=== PATIENT | female | born 1940 | race Caucasian/White ===

== ENCOUNTER → 2017-01-03 08:48 | Outpatient (CLI) | payer MEDICARE, OTHER ==
[2016-11-17 15:05] VITALS: BMI 26.3
[~2017-01-03 08:48] MED LIST: ATIVAN0.5 MG PO; CARAFATE1 G PO; CYCLOBENZAPRINE10 MG PO; EFFEXOR XR75 MG PO; EFFEXOR100 MG PO; HYDROCODONE-APA1 TAB PO; LIDOCAINE 2 %100 ML PO; LIPITOR40 MG PO; MAGNESIUM GLUC500 M1 PO; NYSTATIN ORAL SU5 ML PO; PEPCID20 MG PO; PROTONIX40 MG PO; RESTORIL15 MG PO; ZOFRAN4 MG PO
== END | disposition home or self-care (01) ==
LOC: D.CT 08:48
DX: C34.90 Malignant neoplasm of unspecified part of unspecified bronchus or lung (principal)

== ENCOUNTER → 2017-02-09 08:07 | Outpatient (CLI) | payer MEDICARE, OTHER ==
[2016-11-17 15:05] VITALS: BMI 26.3
== END | disposition home or self-care (01) ==
LOC: D.CT 08:07
DX: C34.82 Malignant neoplasm of overlapping sites of left bronchus and lung (principal)

== ENCOUNTER → 2017-04-11 14:14 | Outpatient (CLI) | payer MEDICARE, OTHER ==
[2016-11-17 15:05] VITALS: BMI 26.3
[~2017-04-11 14:14] MED LIST changes: +LEVAQUIN750 MG PO; +VITAMIN B-121000 MCG PO; +VITAMIN E1000 UNI1 PO
== END | disposition home or self-care (01) ==
LOC: D.CT 14:00
DX: C34.90 Malignant neoplasm of unspecified part of unspecified bronchus or lung (principal)

== ENCOUNTER 2017-04-12 13:44 | Inpatient (IN) | payer MEDICARE, OTHER ==
[~2017-04-12] VITALS: Ht 162.6 cm; Wt 62.1 kg
[~2017-04-12 13:44] MED LIST changes: -LEVAQUIN750 MG PO; -VITAMIN B-121000 MCG PO; -VITAMIN E1000 UNI1 PO
[2017-04-12 15:38] LABS: BASOPHILS 0.2 % (0-2); EOSINOPHILS 0.6 % (0-7); HEMATOCRIT 32.2 % (36.0-48.0); IMMATURE GRANULOCYTES 0.1 % (0-5); LYMPHOCYTES 10.4 % (15-50); MCH 29.5 pg (26.0-34.0); MCHC 31.1 g/dL (31.0-37.0); MONOCYTES 6.8 % (2-11); NEUTROPHILS 81.9 % (40-80); RBC 3.39 10x6/uL (4.00-5.40); RDW 14.6 % (11.5-14.5); WBC 8.1 10x3/uL (4.8-10.8)
[2017-04-12 15:39] LABS: PLATELET COUNT 266 10x3/uL (130-400)
[2017-04-12 16:09] LABS: ALBUMIN 2.2 g/dL (3.4-5.0); ANION GAP 12.1 mmol/L (8-16); BILIRUBIN - TOTAL 0.38 mg/dL (0.2-1.3); CALCIUM 8.9 mg/dL (8.5-10.1); CARBON DIOXIDE 29.9 mmol/L (21.0-32.0); CREATININE - SERUM 0.8 mg/dL (0.6-1.3)
[2017-04-12 23:32] VITALS: BP 121/52; BMI 24.7
[2017-04-12] MEDS ORDERED: VITAMIN E1000 UNI1 PO (23:48)
[2017-04-12] MEDS ORDERED: VITAMIN B-121000 MCG PO (23:48)
[2017-04-12] MEDS ORDERED: LEVAQUIN750 MG PO (23:49)
--- NOTE | 2017-04-13 01:48 | NUR ---
RECIEVED REPORT FROM YANET RN AT 0100, RESUMED CARE OF PT. CHECKED IN ON PT, AWAKE AND ANSWERING QUESTING APPROPRIATELY, DENIES PAIN/NEEDS ATT. RR EVEN AND UNLABORED, NO S&S OF ACUTE DISTRESS ATT. BED LOW AND LOCKED, CALL LIGHT IN REACH. IVF INFUSING AT 50ML/HR PER ORDERS. WILL CONTINUE POC.
--- NOTE | 2017-04-13 03:06 | NUR ---
PT USED BED BOO, 200ML YELLOW URINE. DENIES ANY OTHER NEEDS ATT, WILL CONTINUE POC.
[2017-04-13 04:00] VITALS: BP 108/64
[2017-04-13 05:09] LABS: BASOPHILS 0.2 % (0-2); EOSINOPHILS 0 % (0-7); HEMATOCRIT 28.6 % (36.0-48.0); HEMOGLOBIN 9.3 g/dL (12-16); IMMATURE GRANULOCYTES 0.3 % (0-5); LYMPHOCYTES 5.1 % (15-50); MCH 30.5 pg (26.0-34.0); MCHC 32.5 g/dL (31.0-37.0); MCV 93.8 fL (80.0-100.0); MEAN PLATELET VOLUME 9.8 fL (7.4-10.4); NEUTROPHILS 93.4 % (40-80); PLATELET COUNT 281 10x3/uL (130-400); RBC 3.05 10x6/uL (4.00-5.40); RDW 14.4 % (11.5-14.5)
[2017-04-13 05:17] LABS: WBC 5.9 10x3/uL (4.8-10.8)
[2017-04-13 05:26] LABS: CALCIUM 8.6 mg/dL (8.5-10.1); CARBON DIOXIDE 26.1 mmol/L (21.0-32.0); CREATININE - SERUM 0.8 mg/dL (0.6-1.3); POTASSIUM - SERUM 4.1 mmol/L (3.5-5.1)
--- NOTE | 2017-04-13 07:00 | HP ---
PATIENT: DIANA LEYVA MEDICAL RECORD: [id number] ACCOUNT: [id number] LOCATION:[id number] : 39 ADMISSION DATE: 04/12/17 HISTORY AND PHYSICAL EXAMINATION DATE OF ADMISSION: 04/12/2017 CHIEF COMPLAINT: Shortness of breath. HISTORY OF PRESENT ILLNESS: The patient is a 77-year-old female, who has had a history of being diagnosed with lung CA. She had been being treated in the office for postobstructive pneumonia over the last couple of days. The patient's condition continued to worsen. She became more hypoxic. It was felt the patient should be admitted since she had a CT scan showing worsening of her tumor size, as well as having postobstructive pneumonia. PAST MEDICAL HISTORY: Significant that she has had angioplasty. She has had subclavian angioplasty with stenting times 2. She had an appendectomy, cholecystectomy and tonsillectomy. 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 She has had a history of having hyperlipidemia, depression and peripheral vascular disease. FAMILY HISTORY: Father had leukemia. Mother had COPD. MEDICATIONS: Include Ativan 0.5 q.4 hours p.r.n. anxiety, atorvastatin 40 mg 1 p.o. q. day, Breo Ellipta 200 mcg 1 puff daily, Combivent inhaler 2 puffs q.4 hours p.r.n. shortness of breath, and Flexeril 10 mg p.o. b.i.d. She had been on Levaquin 750 mg once a day for approximately a week, nystatin oral suspension 5 mL 4 times a day, Restoril 15 mg p.o. q.h.s. and Effexor 150 mg once a day. ALLERGIES: KEFLEX, WELL ALLERGIC TO THE EGGS. SOCIAL HISTORY: The patient has been a 1 pack per day smoker. She is retired from nursing and fpc industry. She is . She had smoked most of her adult life. REVIEW OF SYSTEMS: CONSTITUTIONAL: She denies any headaches, seizures, or syncope. She denies change in visual or auditory acuity. PULMONARY: She has an increasing shortness of breath with minimal sputum production. CARDIOVASCULAR: She denies any chest pain, palpitation, PND, or orthopnea. GASTROINTESTINAL: No chronic nausea, vomiting, melena or hematochezia. GENITOURINARY: No urgency, frequency, or dysuria. PHYSICAL EXAMINATION: GENERAL: VITAL SIGNS: In the Emergency Room, this patient's temperature was 97.7, her respirations were 16. She is on 4 liters of O2 with a sat of 100. Her blood pressure was 131/59. HEENT: Her head is normocephalic. No lesions. Ears: TMs clear. Eyes: Pupils are equal, round and reactive to light. Extraocular movements are intact. Nasal cavity, oral cavity and oropharynx clear. NECK: Supple. There is no adenopathy. HEART: Has a regular rate. HISTORY AND PHYSICAL [id number] DIANA LEYVA LUNGS: She has rales, rhonchi, decreased breath sounds in the left lower lung. ABDOMEN: Soft. Bowel sounds are positive. EXTREMITIES: Lower extremities have no edema. LABORATORY DATA: She had a white count of 8.1, hemoglobin 10, hematocrit 32.2 and platelets are 266. She has a sodium of 140, potassium 4, chloride 102, CO2 is 29.9, BUN is 14 and creatinine is 0.9. DIAGNOSTIC DATA: The patient had a chest x-ray. The chest x-ray showed no interval change of airspace disease involving the lingula or left lower lung associated with pleural effusion. The patient had had a CT scan yesterday. The CT did reveal increased size of the tumor as well as a postobstructive changes. ASSESSMENT: Postobstructive pneumonia, history of lung cancer, hypertension, hyperlipidemia, history of depression, and stage III lung cancer. PLAN: The patient will be admitted. Oncology as well as pulmonology consultation will be obtained. TRANSINT:[id number] Voice Confirmation ID: [id number] DOCUMENT ID: [id number] LAILA BUSBY MD at 0700 CC: [id number] DICTATION DATE: 04/12/171752 ANALYTICAL DATA MINER: 04/13/17 0023 ADM IN [facility] [id number] [place] [address]
--- NOTE | 2017-04-13 07:35 | NUR ---
PT ASSESSMENT COMPLETE ON WALKING ROUNDS AWAKE AND ALERT ORINETD X 3 LUNGS WITH NOTED RHONCHI IN ALL FEILDS PTR SHORT OF BREATHIN PROCESS OF UPDRAFT TX AT THIS TIME. BSA X 4 QUADS ALL ADLS PER STAFF ASSIST. SIDE RAILS UP X 2 CALL LIGHT IN REACH.
[2017-04-13 08:31] VITALS: BP 107/50
[2017-04-13 12:45] VITALS: BP 114/47
--- NOTE | 2017-04-13 13:07 | NUR ---
Patient Name: DIANA LEYVA Admission Status: ER Accout number: [id number] Admission Date: 04-12-2017 : 1940 Admission Diagnosis:PNEUMONIA, UNSPECIFIED ORGANISM Attending: MARIA LUISA Current LOS: 1 Anticipated DC Date: 04-17-2017 Planned Disposition: Home Primary Insurance: MEDICARE A & B Discharge Planning Comments: CM MET WITH PATIENT REGARDING D/C NEEDS AND PLANS. PATIENT STATED SHE LIVES WITH HER SPOUSE (MAURICIO) AND HE WILL DRIVE HER HOME AT DISCHARGE. PATIENTS HOME IS SAFE AND HAS 1 STEP TO ENTER HOME AND NO STAIRS INSIDE. PATIENT STATED SHE IS INDEPENDENT WITH HER CARE AND HAS A WALKER, SHOWER CHAIR, CANE, BS COMMODE, O2 (2L), NEBULIZER, AND PORT O2. OXYGEN IS SUPPLIED BY [facility]. PATIENTS PCP IS DR. BUSBY AND [facility] IS HER PHARMACY. PATIENT WANTS TO WAIT AND SEE IF HOME HEALTH IS NEEDED BEFORE CHOOSING ONE. CM WILL CONTINUE TO FOLLOW PATIENT WITH D/C NEEDS AND PLANS. PCP [facility]- [phone] MAURICIO (SPOUSE) [phone] Dulser: Michelle Lipscomb Is the patient Alert and Oriented? Yes 0 * How many steps to enter\exit or inside your home? 1 0 * PCP DR. BUSBY 0 * Pharmacy [facility] 0 * Preadmission Environment Home with Family 0 * ADLs Independent 0 * Equipment Bedside Commode Cane Nebulizer Oxygen Shower Chair Walker 0 * Other Equipment PORTABLE O2 0 * List name and contact numbers for known caregivers / representatives who currently or will assist patient after discharge: MAURICIO (SPOUSE) [phone] 0 * Community resources currently utilized None 0 * Additional services required to return to the preadmission environment? Yes 0 * Can the patient safely return to the preadmission environment? Yes 0 * Has this patient been hospitalized within the prior 30 days at any hospital? No 0 Grand Total: 0
--- NOTE | 2017-04-13 14:00 | NUR ---
ARANDA CATHETER INSERTED PER ORDER VIA STERILE TECHNIQUE WITH IMMEDIATE RETURN OF CLEAR YELLOW URINE.
[2017-04-13 14:31] VITALS: Ht 162.6 cm; Wt 62.1 kg
--- NOTE | 2017-04-13 16:36 | NUR ---
NO ACUTE DISTRESS NOTED VOICES ALL NEEDS WELL CALL LIGHT IN REACH SIDE RAILS UP X 2
[2017-04-13 16:37] VITALS: BP 113/48
--- NOTE | 2017-04-13 17:00 | NUR ---
PATIENT IS AWAKE, ALERT AND ORIENTED X'S 4. RESPIRATIONS ARE EVEN AND UNLABORED ON 2L/MIN OF OXYGEN VIA NASAL CANNULA. NO SIGNS OF DISTRESS NOTED. BED IN LOWEST POSITION, CALL LIGHT IN REACH. BED RAILS UP X'S 2.
--- NOTE | 2017-04-13 19:54 | NUR ---
NO ACUTE DISTRESS NOTED INITAL ASSESSMENT COMPLETE AWAKE AND ALERT ORIENTED X 3 LUNGS WITH NOTED RHONCHI IN ALL FEILDS. PT SHORT OF BREATH WITH ANY EXERTION. ARANDA PATENT TO CLEAR YELLOW URINE TO GRAVITY FLOW
[2017-04-13 20:00] VITALS: BP 116/63
--- NOTE | 2017-04-13 22:10 | NUR ---
PT REC'D FROM MONIKA FOWLER. RESTING IN BED WITH EYES CLOSED. NO SIGNS OF DISTRESS. RESP EVEN AND UNLABORED. BED LOW, CALL LIGHT IN REACH, DENIES NEEDS. CPOC.
--- NOTE | 2017-04-14 03:33 | NUR ---
PT IS SITTING UP IN THE BED WITH RESP TX FINISHING UP. SHE THEN DID HER IS AND FLUTTER VALVE. THERE IS O2 AT 2 LIGERS AND NO DISTRESS NOTED. SHE IS A LITTLE SHAKEY BUT THIS DOSENT APPEAR TO BE A NEW THING. THE BED IS LOW, RAISL UP X'S 2 WITH THE CALL LIGHT AT HAND.
[2017-04-14 04:00] VITALS: BP 116/53
[2017-04-14 04:33] LABS: BASOPHILS 0 % (0-2); EOSINOPHILS 0 % (0-7); HEMATOCRIT 27.6 % (36.0-48.0); HEMOGLOBIN 8.9 g/dL (12-16); IMMATURE GRANULOCYTES 0.2 % (0-5); LYMPHOCYTES 1.7 % (15-50); MCH 29.9 pg (26.0-34.0); MCHC 32.2 g/dL (31.0-37.0); MCV 92.6 fL (80.0-100.0); MONOCYTES 2.5 % (2-11); NEUTROPHILS 95.6 % (40-80); PLATELET COUNT 318 10x3/uL (130-400); RBC 2.98 10x6/uL (4.00-5.40); RDW 14.5 % (11.5-14.5); WBC 14.8 10x3/uL (4.8-10.8)
[2017-04-14 04:48] LABS: ANION GAP 14.8 mmol/L (8-16); CALCIUM 8.9 mg/dL (8.5-10.1); CARBON DIOXIDE 25.6 mmol/L (21.0-32.0); CREATININE - SERUM 0.8 mg/dL (0.6-1.3)
[2017-04-14 04:50] LABS: POTASSIUM - SERUM 3.4 mmol/L (3.5-5.1)
--- NOTE | 2017-04-14 04:55 | NUR ---
ALERTED BY KRISHNA JAMISON TECH, WITH CRITICAL LAB RESULTS. PT OF 49.5 AND INR OF 5.3.
--- NOTE | 2017-04-14 06:22 | NUR ---
CONSENTS SIGNED AT THIS TIME. NO QUESTIONS OR CONCERNS VOICED BY PT. BED LOW, CALL LIGHT IN REACH, DENIES NEEDS. CPOC.
--- NOTE | 2017-04-14 07:40 | NUR ---
PT AWAKE AND ALERT ORIENTED X 3 LUNGS WITH NOTED CRACKLES BILATERAL UPPER LOBES. BSA X 4 QUADS. NPO SINCE [place] FOR THORACENTESIS TODAY PT VERY ANXIOUS NEW ORDER PER DR CHARLTON FOR 1 MG PO ATIVAN GIVEN PER ORDER.
[2017-04-14 07:58] LABS: APTT 38.7 SECONDS (22.8-39.4); INR 1.18 (0.85-1.17); PROTIME 14.9 SECONDS (11.6-15.0)
[2017-04-14 08:39] VITALS: BP 91/45
--- NOTE | 2017-04-14 08:44 | NUR ---
PT IN CT AT THIS TIME FOR THORACENTESIS.
--- NOTE | 2017-04-14 10:30 | NUR ---
RIGHT PORT ACCESSED PER VASCULAR ACCESS NURSE 20 GA 1 IN KOTHARI INSERTED WITH POSITIVE BLOOD RETURN NOTED STERILE TECHNIQUE USED FOR INSERTION AND DRESSING
--- NOTE | 2017-04-14 10:34 | NUR ---
IV ACCESS-20 GAUGE PER INCH INSERTED IN RIGHT CHEST WALL AFTER STERILE PREP PER HOSPITAL PROTOCOL. SITE DRESSED WITH BIOPATCH, TEGADERM DRESSING. NANCY WEST RN
--- NOTE | 2017-04-14 10:36 | NUR ---
VASCULAR NURSE NANCY IN ROOM.PT WITHOUT DISTRESS.CALL LIGHT IN REACH
[2017-04-14 12:18] LABS: PROTEIN - BODY FLUID 2.9 G/DL
[2017-04-14 12:36] LABS: LYMPH - BF 24 %; MACROPHAGES BF 46 %; MESOTHELIALS BF 15 %; NEUT - BF 15 %
[2017-04-14 13:10] VITALS: BP 107/87
[2017-04-14 16:37] VITALS: BP 110/52
--- NOTE | 2017-04-14 18:40 | NUR ---
PT REQUESTED AND RECIEVED LORAZEPAM FOR ANXIETY HAD THORACENTESIS TODAY WITH REMOVAL OF 700 ML OF FLUID .
[2017-04-14 20:00] VITALS: BP 109/51
--- NOTE | 2017-04-14 21:49 | NUR ---
PATIENT SITTING UP IN BED. ALERT AND ORIENTED. NO SIGNS OF DISTRESS NOTED. DENIES ANY NEEDS OR PAIN AT THIS TIME. SCHEDULED MEDS GIVEN. SHIFT ASSESSMENT COMPLETED. BED LOW. CALL LIGHT IN REACH
[2017-04-15 04:00] VITALS: BP 108/53
[2017-04-15 04:18] LABS: BASOPHILS 0.1 % (0-2); EOSINOPHILS 0.1 % (0-7); HEMOGLOBIN 9.5 g/dL (12-16); IMMATURE GRANULOCYTES 0.2 % (0-5); LYMPHOCYTES 2.7 % (15-50); MCH 29.8 pg (26.0-34.0); MCHC 31.7 g/dL (31.0-37.0); MEAN PLATELET VOLUME 9.9 fL (7.4-10.4); MONOCYTES 4.6 % (2-11); NEUTROPHILS 92.3 % (40-80); PLATELET COUNT 299 10x3/uL (130-400); RBC 3.19 10x6/uL (4.00-5.40); RDW 14.8 % (11.5-14.5); WBC 15.7 10x3/uL (4.8-10.8)
[2017-04-15 04:28] LABS: ANION GAP 12.3 mmol/L (8-16); CALCIUM 8.9 mg/dL (8.5-10.1); CARBON DIOXIDE 25.4 mmol/L (21.0-32.0); CREATININE - SERUM 0.9 mg/dL (0.6-1.3); MAGNESIUM - SERUM 2.1 mg/dL (1.8-2.4); PHOSPHOROUS 2.5 mg/dL (2.5-4.9); POTASSIUM - SERUM 3.7 mmol/L (3.5-5.1)
--- NOTE | 2017-04-15 07:45 | NUR ---
PT AWAKE AND ALERT ORIENTED X 3 LUNGS WITH RHONCHI NOTED TO ALL FEILDS. HRR ON O2 AT 3LPM. BSA X 4 QUADS NON TENDER. ARANDA PATENT TO CLEAR YELLOW URINE.
[2017-04-15 08:20] VITALS: BP 112/59
[2017-04-15 11:53] VITALS: BP 123/56
--- NOTE | 2017-04-15 12:42 | NUR ---
PT RESTING QUIETLY WITH EYES CLOSED NO DISTRESS NOTED RESPS LABORED EVEN IN SLEEP RHONCHI NOTED TO ALL FEILDS
--- NOTE | 2017-04-15 14:29 | NUR ---
AWAKE WITH FAMILY IN THE ROOM AT THIS TIME. RESPIRATIONS EVEN AND NON LABORED. CALL LIGHT IN REACH, WILL CONTINUE WITH PLAN OF CARE.
[2017-04-15 15:56] VITALS: BP 96/50
[2017-04-15 18:07] LABS: ACID FAST SMEAR Negative (()); AFB SPECIMEN PROCESSING Concentration (())
--- NOTE | 2017-04-15 19:20 | NUR ---
REPORT RECEIVED AND CARE ASSUMED. ASSESSMENT COMPLETED, SEE FLOW SHEET FOR FINDINGS. LYING IN BED VISITING WITH . ASSISTED WITH CHANGING TO HER GOWN. AWAKE AND ALERT, ORIENTED X 3. DENIES ANY NEEDS AT THIS TIME. CALL LIGHT IN EASY REACH. WILL CONTINUE TO MONITOR.
[2017-04-15 20:00] VITALS: BP 129/60
--- NOTE | 2017-04-15 21:32 | NUR ---
ATIVAN 1 MG PO GIVEN PER REQUEST FOR ANXIETY.
[2017-04-16] VITALS: BP 121/52
[2017-04-16 04:00] VITALS: BP 109/46
[2017-04-16 04:50] LABS: BASOPHILS 0 % (0-2); EOSINOPHILS 0 % (0-7); HEMATOCRIT 28.2 % (36.0-48.0); IMMATURE GRANULOCYTES 0.3 % (0-5); LYMPHOCYTES 1.8 % (15-50); MCH 29.7 pg (26.0-34.0); MCHC 31.9 g/dL (31.0-37.0); MCV 93.1 fL (80.0-100.0); MEAN PLATELET VOLUME 9.8 fL (7.4-10.4); MONOCYTES 3.4 % (2-11); NEUTROPHILS 94.5 % (40-80); PLATELET COUNT 275 10x3/uL (130-400); RBC 3.03 10x6/uL (4.00-5.40); RDW 14.8 % (11.5-14.5); WBC 13.2 10x3/uL (4.8-10.8)
[2017-04-16 05:03] LABS: ANION GAP 9.7 mmol/L (8-16); CALCIUM 8.8 mg/dL (8.5-10.1); CARBON DIOXIDE 27.2 mmol/L (21.0-32.0); CREATININE - SERUM 0.9 mg/dL (0.6-1.3); MAGNESIUM - SERUM 2.2 mg/dL (1.8-2.4); PHOSPHOROUS 2.2 mg/dL (2.5-4.9); POTASSIUM - SERUM 3.9 mmol/L (3.5-5.1)
--- NOTE | 2017-04-16 06:19 | NUR ---
ELECTROLYTE PROTOCOL DONE: PHOSPHORUS=2.2 LOW NEUTA PHOS PACKET GIVEN IN WATER
[2017-04-16 08:23] VITALS: BP 109/47
[2017-04-16 12:42] VITALS: BP 122/78
[2017-04-16 17:04] VITALS: BP 128/65
[2017-04-16 19:00] VITALS: BP 108/55
--- NOTE | 2017-04-16 21:15 | NUR ---
PATIENT RESTING BED. ALERT AND ORIENTED. NO SIGNS OF DISTRESS NOTED. SCHEDULED MEDS GIVEN. SHIFT ASSESSMENT COMPLETED. DENIES ANY NEEDS AT THIS TIME. BED LOW CALL LIGHT IN REACH
[2017-04-17 04:00] VITALS: BP 101/32
[2017-04-17 04:36] LABS: BASOPHILS 0 % (0-2); EOSINOPHILS 0 % (0-7); HEMATOCRIT 28.1 % (36.0-48.0); HEMOGLOBIN 8.9 g/dL (12-16); IMMATURE GRANULOCYTES 0.3 % (0-5); LYMPHOCYTES 2.2 % (15-50); MCH 29.6 pg (26.0-34.0); MCHC 31.7 g/dL (31.0-37.0); MCV 93.4 fL (80.0-100.0); MEAN PLATELET VOLUME 10.2 fL (7.4-10.4); MONOCYTES 2.4 % (2-11); NEUTROPHILS 95.1 % (40-80); PLATELET COUNT 292 10x3/uL (130-400); RBC 3.01 10x6/uL (4.00-5.40); RDW 14.8 % (11.5-14.5); WBC 11.6 10x3/uL (4.8-10.8)
--- NOTE | 2017-04-17 04:50 | NUR ---
PATIENT RESTING WITH EYES CLOSED. NO VISIBLE SIGNS OF DISTRESS. BED IN LOWEST POSITION AND CALL LIGHT WITHIN REACH.
[2017-04-17 05:04] LABS: ANION GAP 11.1 mmol/L (8-16); CALCIUM 8.8 mg/dL (8.5-10.1); CARBON DIOXIDE 28.8 mmol/L (21.0-32.0); CREATININE - SERUM 0.9 mg/dL (0.6-1.3); MAGNESIUM - SERUM 2.3 mg/dL (1.8-2.4); POTASSIUM - SERUM 3.9 mmol/L (3.5-5.1)
[2017-04-17 05:05] LABS: PHOSPHOROUS 2.9 mg/dL (2.5-4.9)
--- NOTE | 2017-04-17 07:30 | NUR ---
PATIENT IS SITTING UP IN THE BED. PATIENT IS AWAKE, ALERT, AND ORIENTED X4. AT PATIENT'S BEDSIDE. PATIENT IS AWAKE, ALERT, AND ORIENTED X4. PATIENT DENIES ANY NEEDS AT PRESENT TIME. PATIENT IS CURRENTLY RECEIVING A BREATHING TREATMENT PER RT. CALL LIGHT IN PATIENT'S REACH. WILL MONITOR PATIENT.
[2017-04-17 08:24] VITALS: BP 110/43
--- NOTE | 2017-04-17 08:30 | NUR ---
PATIENT RESTING IN BED. PATIENT IS AWAKE, ALERT, AND ORIENTED X4. AT HER BEDSIDE. NO COMPLAINTS OF PAIN AT PRESENT TIME. ASSESSMENT COMPLETED. SEE FLOWSHEET FOR ANY DETAILS. SCHEDULED MORNING MEDICATIONS GIVEN TO PATIENT. PATIENT TOLERATED WELL. RIGHT PORT PATENT WITH DRESSING C/D/I. ARANDA CATHETER PATENT AND DRAINING CLEAR YELLOW URINE. PATIENT DENIES ANY NEEDS AT PRESENT TIME. CALL LIGHT IN PATIENT'S REACH. WILL MONITOR PATIENT.
[2017-04-17 11:10] LABS: FUNGUS STAIN Final report (())
[2017-04-17 11:20] VITALS: BP 117/61
[2017-04-17 16:12] VITALS: BP 119/63
--- NOTE | 2017-04-17 18:11 | NUR ---
PATIENT RESTING IN THE BED. SCHEDULED MEDICATION GIVEN TO PATIENT. PATIENT WATCHING T.V. AND DENIES ANY NEEDS AT PRESENT TIME. CALL LIGHT IN PATIENT'S REACH. WILL MONITOR.
[2017-04-17 19:00] VITALS: BP 130/55
--- NOTE | 2017-04-17 20:10 | NUR ---
PATIENT SITTING UP IN BED. ALERT AND ORIENTED. NO SIGNS OF DISTRESS NOTED. SCHEDULED MEDS GIVEN. SHIFT ASSESSMENT COMPLETED. DENIES ANY NEEDS AT THIS TIME. BED LOW. CALL LIGHT IN REACH
[2017-04-18] VITALS: BP 113/53
[2017-04-18 04:00] VITALS: BP 130/54
[2017-04-18 05:50] LABS: BASOPHILS 0 % (0-2); EOSINOPHILS 0 % (0-7); HEMOGLOBIN 9.5 g/dL (12-16); IMMATURE GRANULOCYTES 0.4 % (0-5); LYMPHOCYTES 2.6 % (15-50); MCH 29.3 pg (26.0-34.0); MCHC 31.7 g/dL (31.0-37.0); MCV 92.6 fL (80.0-100.0); MEAN PLATELET VOLUME 10.1 fL (7.4-10.4); MONOCYTES 4.6 % (2-11); NEUTROPHILS 92.4 % (40-80); PLATELET COUNT 292 10x3/uL (130-400); RBC 3.24 10x6/uL (4.00-5.40); RDW 14.9 % (11.5-14.5)
[2017-04-18 06:08] LABS: CALCIUM 8.5 mg/dL (8.5-10.1); CARBON DIOXIDE 31.2 mmol/L (21.0-32.0); CREATININE - SERUM 0.8 mg/dL (0.6-1.3)
[2017-04-18 06:09] LABS: POTASSIUM - SERUM 3.2 mmol/L (3.5-5.1)
[2017-04-18 08:16] VITALS: BP 121/82
--- NOTE | 2017-04-18 08:33 | NUR ---
PT ASSESSMENT COMPLETE AWAKE AND ALERT ORIENTED X 3 LUNGS NOTED TO HAVE RHONCHI TO BILATERAL LUNGS DO SOUND BETTER THIS ASSESSMENT THAN PREIVOUS ASSESSMENT SEVERAL DAYS AGO. BSA X 4 QUADS ARANDA PATENT TO CLEAR YELLOW URINE.
[2017-04-18 11:48] VITALS: BP 124/69
--- NOTE | 2017-04-18 13:38 | EC ---
PATIENT:DIANA LEYVA DATE OF SERVICE: 04/12/17 SEX: F MEDICAL RECORD: [id number] DATE OF : 39 LOCATION:[facility] AGE OF PATIENT: 77 ADMISSION DATE: 04/12/17 REFERRING PHYSICIAN: INTERPRETING PHYSICIAN: KAYE CHAMORRO MD ECHOCARDIOGRAM REPORT ECHO CHARGES 4 ECHO COMPLETE CLINICAL DIAGNOSIS: CHF ECHOCARDIOGRAPHIC MEASUREMENTS (adult normal given) AC root (d.<3.7cm) 3.5 LV Septum d (<1.2 cm> 0.8 Valve Excursion 1.7 LV Septum (systole) 1.7 Left Atria (s.<4.0cm> 3.3 LVPW d(<1.2cm) 1.1 RV (d.<2.3cm) 2.5 LVPW (sytole) 1.9 LV diastole(<5.6CM) 4.6 MV E-F(>70mm/sec) LV systole 2.1 LVOT Diameter 1.8 MV exc.(>10mm) Est.ejection fraction (50-75%) Pericardial Effusion N DOPPLER: LVIT A 166 E 124 LA RVSP 48.0 LVOT 121 AOP1/2T Asc. Ao 177 RVOT 95.0 RA PA 119 AV Gradient Peak 13.0 AV Mean 5.5 AV Area 1.9 MV Gradient Peak 10.4 MV Mean 4.4 MV Area COMMENTS: [employer]: Franky CARRENOOE Hospital Nurse:Ashu Ordoñez TAPE# PACS DATE OF SERVICE: 04/16/2017 Adequate 2D echo, color flow, spectral Doppler and M-Mode. No LVH. LV internal dimensions are normal. Wall motion is normal. EF is greater than 55%. Aortic valve is tricuspid. No stenosis by Doppler interrogation. The left atrium is normal at 3.3 cm. Mitral valve shows no prolapse. Trace MR. Right-sided chamber is grossly normal. Trace TR. TRANSINT:[id number] Voice Confirmation ID: [id number] DOCUMENT ID: [id number] ECHOCARDIOGRAM REPORT [id number] DIANA LEYVA KAYE BRUNO MD at 1338 CC: [id number] DICTATION DATE: 04/16/17 0929 STUDIO HAND: 04/16/17 1222 ADM IN [facility] [address] [place] [address]
[2017-04-18 15:20] VITALS: BP 133/68
--- NOTE | 2017-04-18 18:54 | NUR ---
PATIENT IS AWAKE, ALERT AND ORIENTED X'S 4. RESPIRATIONS ARE MILDLY LABORED. PATIENT DENIES NEEDS. BED RAILS X'S 4. BED IN LOWEST POSITION.
[2017-04-18 19:00] VITALS: BP 126/56
--- NOTE | 2017-04-18 21:41 | NUR ---
AWAKE,ALERT,NO COMPLAINTS VOICED. IV INFUSING TO RIGHT PORT WIHTOUT REDNESS OR EDEMA NOTED. BILATERAL LUNG SOUNDS WIHT CRACKLES NOTED WIHT EXPIRATORY WHEEZING. CL IN REACH
[2017-04-19] VITALS: BP 139/73
[2017-04-19 04:00] VITALS: BP 131/71
--- NOTE | 2017-04-19 04:16 | NUR ---
EYES CLOSED RESPIRATIONS WITH EASE AND UNLABORED. SR UP X2 CALL LIGHT WITHIN REACH.
[2017-04-19 05:08] LABS: BASOPHILS 0.1 % (0-2); EOSINOPHILS 0 % (0-7); HEMATOCRIT 31.8 % (36.0-48.0); HEMOGLOBIN 10.3 g/dL (12-16); IMMATURE GRANULOCYTES 0.6 % (0-5); LYMPHOCYTES 2.6 % (15-50); MCHC 32.4 g/dL (31.0-37.0); MCV 92.7 fL (80.0-100.0); MEAN PLATELET VOLUME 10.5 fL (7.4-10.4); MONOCYTES 3.3 % (2-11); NEUTROPHILS 93.4 % (40-80); PLATELET COUNT 288 10x3/uL (130-400); RBC 3.43 10x6/uL (4.00-5.40); WBC 11.2 10x3/uL (4.8-10.8)
[2017-04-19 05:28] LABS: CALCIUM 8.5 mg/dL (8.5-10.1); CARBON DIOXIDE 32.1 mmol/L (21.0-32.0); CREATININE - SERUM 0.8 mg/dL (0.6-1.3); POTASSIUM - SERUM 4.1 mmol/L (3.5-5.1)
--- NOTE | 2017-04-19 06:01 | NUR ---
NO CHANGE IN ASSESSMENT. CL IN REACH.
--- NOTE | 2017-04-19 07:32 | NUR ---
AWAKE AND ALERT AT THIS TIME. AT BEDSIDE. OXYGEN ON 3L VIA NC. RESPIRATIONS EVEN AND NON LABORED. BED IN LOWEST POSITION WITH WHEELS LOCKED AND SRX2. CALL LIGHT IN REACH, WILL CONTINUE WITH PLAN OF CARE.
[2017-04-19 07:55] VITALS: BP 123/67
--- NOTE | 2017-04-19 08:38 | NUR ---
SCHEDULED MEDICATIONS ADMINISTERED AT THIS TIME. ASSESSMENT PERFORMED PER FLOWSHEET. AT BEDSIDE. WILL CONTINUE WITH PLAN OF CARE.
[2017-04-19 11:17] VITALS: BP 123/46
[2017-04-19 14:55] VITALS: BP 122/55
--- NOTE | 2017-04-19 15:46 | NUR ---
NUTRITION MONITORING & EVAL CHART REVIEWED, PT VISIT. PT WITH < 50% INTAKE MEALS. PT REPORTS POOR PO INTAKE 4 WEEKS PRIOR TO ADMIT WITH ~ 22# WT LOSS. NOW ASSESSED WITH SEVERE MALNUTRITION OF CHRONIC ILLNESS AEB 1)=/< 75% INTAKE EST ENERGY NEEDS =/> 1 MONTH 2)WT LOSS > 5% IN ONE MONTH WILL CONTINUE TO PROVIDE DIET, HONOR FOOD PREFERENCES, ENCOURAGE PO INTAKE. RD FOLLOWING
--- NOTE | 2017-04-19 16:47 | NUR ---
SCHEDULED ANTIBIOTIC ADMINISTERED AT THIS TIME PER ORDER. DRESSING TO RIGHT CHEST PORT CHANGED IN STERILE FASHION AND KOTHARI NEEDLE NOT CHANGED D/T PATIENT'S REFUSAL. ARANDA CARE PROVIDED PER ARANDA CARE WIPES. PT TOLERATED WITHOUT COMPLAINTS.
[2017-04-19 19:00] VITALS: BP 116/52
[2017-04-20] VITALS: BP 119/62
--- NOTE | 2017-04-20 00:55 | NUR ---
RESTING QUIETLY. NO DISTRESS NOTED.CL IN REACH
[2017-04-20 04:00] VITALS: BP 115/65
[2017-04-20 05:40] LABS: BASOPHILS 0.1 % (0-2); EOSINOPHILS 0 % (0-7); HEMOGLOBIN 10.6 g/dL (12-16); IMMATURE GRANULOCYTES 0.6 % (0-5); LYMPHOCYTES 2.4 % (15-50); MCH 29.7 pg (26.0-34.0); MCHC 32.1 g/dL (31.0-37.0); MCV 92.4 fL (80.0-100.0); MEAN PLATELET VOLUME 10.4 fL (7.4-10.4); MONOCYTES 5.4 % (2-11); NEUTROPHILS 91.5 % (40-80); PLATELET COUNT 300 10x3/uL (130-400); RBC 3.57 10x6/uL (4.00-5.40); RDW 15.3 % (11.5-14.5); WBC 12.4 10x3/uL (4.8-10.8)
--- NOTE | 2017-04-20 05:45 | NUR ---
AWAKE WIHT NO COMPLIANTS. NO CHANGE IN ASSESSMENT. CL IN REACH.
[2017-04-20 05:58] LABS: ANION GAP 7.9 mmol/L (8-16); CALCIUM 8.5 mg/dL (8.5-10.1); CARBON DIOXIDE 34.9 mmol/L (21.0-32.0); CREATININE - SERUM 0.9 mg/dL (0.6-1.3); POTASSIUM - SERUM 3.8 mmol/L (3.5-5.1)
--- NOTE | 2017-04-20 07:35 | NUR ---
UPDRAFT IN USE. FAMILY AT BEDSIDE. DENIES ANY NEEDS AT PRESENT.
[2017-04-20 08:02] VITALS: BP 104/51
--- NOTE | 2017-04-20 09:00 | NUR ---
ASSESSMENT COMPLETE. R PORT PATENT. NS INFUSING AT KVO. O2 3L NC IN USE. ARANDA PATENT DRAINING YELLOW URINE. SOB ON EXERTION.DENIES ANY NEEDS AT PRESENT.
--- NOTE | 2017-04-20 11:00 | NUR ---
SITTING UP IN CHAIR. DENIES ANY NEEDS AT PRESENT.
[2017-04-20 12:00] VITALS: BP 106/43
--- NOTE | 2017-04-20 13:00 | NUR ---
DENIES ANY NEEDS AT PRESENT.
[2017-04-20 16:11] VITALS: BP 110/57
--- NOTE | 2017-04-20 16:30 | NUR ---
DENIES ANY NEEDS AT PRESENT. RESTING QUIETLY IN BED. RESP EVEN,NONLABORED AT THIS TIME.
--- NOTE | 2017-04-20 18:26 | NUR ---
DENIES ANY NEEDS AT PRESENT.
--- NOTE | 2017-04-20 19:10 | NUR ---
ASSESSMENT COMPLETED, NO ACUTE DISTRESS NOTED, R PORT IV INFUSING WITH EASE, ARANDA DRAINING TO GRAVITY, DENIES NEEDS AT THIS TIME, SR'S UP, CL IN REACH, WILL MONITOR
[2017-04-20 20:00] VITALS: BP 107/51
--- NOTE | 2017-04-20 20:25 | NUR ---
PRN ATIVAN GIVEN PER REQUEST FOR ANXIETY ALONG WITH SCHEDULED MEDS, DIANA WELL, DENIES NEEDS, SAFETY MEASURES IN PLACE, CL IN REACH
--- NOTE | 2017-04-20 21:48 | NUR ---
RESTING WITH EYES CLOSED, RESP WITH EASE, NO DISTRESS NOTED, FALL PRECAUTIONS IN PLACE, CL IN REACH
--- NOTE | 2017-04-20 23:15 | NUR ---
CONTINUES TO REST WITH EYES CLOSED, NO DISTRESS NOTED, SAFETY MEASURES IN PLACE, CL IN REACH
[2017-04-21 04:00] VITALS: BP 114/58
[2017-04-21 04:45] LABS: BASOPHILS 0 % (0-2); EOSINOPHILS 0 % (0-7); HEMATOCRIT 32.2 % (36.0-48.0); HEMOGLOBIN 10.4 g/dL (12-16); IMMATURE GRANULOCYTES 0.5 % (0-5); LYMPHOCYTES 2.3 % (15-50); MCH 29.7 pg (26.0-34.0); MCHC 32.3 g/dL (31.0-37.0); MEAN PLATELET VOLUME 10.3 fL (7.4-10.4); MONOCYTES 5.4 % (2-11); NEUTROPHILS 91.8 % (40-80); PLATELET COUNT 259 10x3/uL (130-400); RDW 15.5 % (11.5-14.5); WBC 13.1 10x3/uL (4.8-10.8)
[2017-04-21 04:57] LABS: ANION GAP 7.3 mmol/L (8-16); CALCIUM 8.7 mg/dL (8.5-10.1); CARBON DIOXIDE 35.1 mmol/L (21.0-32.0); CREATININE - SERUM 0.9 mg/dL (0.6-1.3); POTASSIUM - SERUM 3.4 mmol/L (3.5-5.1)
--- NOTE | 2017-04-21 05:24 | NUR ---
40 MEQ KCL GIVEN PER PROTOCOL FOR LEVEL OF 3.4 ALONG WITH ROUTINE MEDS, DIANA WELL, SR'S UP, CL IN REACH
--- NOTE | 2017-04-21 07:42 | NUR ---
AWAKE AND ALERT. ORIENTED X3. NO C/O AT THIS TIME. LUNGS HAVE CRACKLES AND WHEEZES THROUGHOUT LUNG ALBERTO. REPORTS OCCASSSIONALLY PRODUCTIVE COUGH. SKIN IS INTACT WITHOUT REDNESS BUT 2-3 PLUS EDEMA NOTED TO BILATERAL LOWER EXTREMETIES. SCD'S IN PLACE. DENIES NEEDS. FAMILY AT BEDSIDE.
[2017-04-21 08:15] VITALS: BP 98/49
--- NOTE | 2017-04-21 10:44 | NUR ---
RESTING QUIETLY IN BED. NO C/O AT THIS TIME.
[2017-04-21 12:28] VITALS: BP 103/55
--- NOTE | 2017-04-21 14:30 | NUR ---
TAXOL COMPLETED. PATIENT TOLERATED WELL. NO S/S OF REACTION.
--- NOTE | 2017-04-21 15:24 | NUR ---
CARBOPLATIN INITIATED 200MG VIA RT IP . GOOD BLOOD RETURN AND IP FLUSHES WITHOUT HESITENCE. VS-TEMP 98.5, 109/70, 117, O2 96% ON 2L PER NC, RESP 16 EVEN, UNLABORED. WILL MONITOR FOR S/S OF REACTION. AT BEDSIDE.
--- NOTE | 2017-04-21 19:24 | NUR ---
ATE ABOUT ONE QUARTER OF SUPPER. NO CHANGES NOTED. DENIES NEEDS.
--- NOTE | 2017-04-21 19:50 | NUR ---
rec'd. in bed 02 3l nc denies ANY FURTHER DISCOMFORT AT PRESENT TIME. WILL CONTINUE TO MONITOR FOR ANY CHGES. AND FOLLOW CURRENT PLAN OF CARE.
[2017-04-21 20:00] VITALS: BP 95/48
[2017-04-22] VITALS: BP 98/33
--- NOTE | 2017-04-22 02:56 | NUR ---
PT IS ASLEEP WITH EASY RESPIRATIONS AND NO SIGNS OF DISTRESS NOTED. THERE IS A ARANDA CATH AT THE BEDSIDE AND THE BED IS LOW, RAILS UP X'S 2 WITH THE CALL LIGHT AT HAND.
[2017-04-22 04:00] VITALS: BP 94/22
--- NOTE | 2017-04-22 07:40 | NUR ---
PT AOX4 RESP EVEN AND NONLABORED IV TO RIGHT CHEST WALL PORT PATENT AND INTACT AT THIS TIMEPT DENIES NEEDS AT THIS TIME SRX2 BED AT LOWEST SETTING CALL LIGHT WITHIN REACH WILL CONTINUE TO MONITOR
[2017-04-22 08:18] VITALS: BP 107/40
[2017-04-22 13:25] VITALS: BP 108/36
--- NOTE | 2017-04-22 13:34 | NUR ---
PHYSICAL THERAPY NOTIFIED ME THAT PT WAS ON THE FLOOR BETWEEN THE BED AND THE BATHROOM AND PHYSICAL THERAPIST HELPED PT BACK TO BED. DR. MARIANO PAGED. PT. CHRIS LEYVA CALLED AND HE STATED "THAT IS THE FOURTH TIME THIS MONTH". AND SAID HE WOULD BE UP LATER THIS EVENING
--- NOTE | 2017-04-22 14:05 | NUR ---
DR MARIANO RETURNED PHONE CALL AND REPORTED PT FALL TO DOCTOR, AND STATED "TELL PT TO USE CALL LIGHT AND USE A BSC".
[2017-04-22 16:01] VITALS: BP 118/55
[2017-04-22 20:00] VITALS: BP 88/35
[2017-04-23] VITALS: BP 96/46
[2017-04-23 04:13] VITALS: BP 121/56
[2017-04-23 05:11] LABS: BASOPHILS 0.1 % (0-2); EOSINOPHILS 0.1 % (0-7); HEMOGLOBIN 11.5 g/dL (12-16); IMMATURE GRANULOCYTES 0.4 % (0-5); LYMPHOCYTES 2.8 % (15-50); MCH 29.6 pg (26.0-34.0); MCHC 32.9 g/dL (31.0-37.0); MEAN PLATELET VOLUME 10.5 fL (7.4-10.4); MONOCYTES 3.5 % (2-11); NEUTROPHILS 93.1 % (40-80); RBC 3.89 10x6/uL (4.00-5.40); RDW 15.8 % (11.5-14.5); WBC 19.1 10x3/uL (4.8-10.8)
[2017-04-23 05:14] LABS: PLATELET COUNT 200 10x3/uL (130-400)
[2017-04-23 05:26] LABS: ANION GAP 8.5 mmol/L (8-16); CALCIUM 8.3 mg/dL (8.5-10.1); CREATININE - SERUM 0.9 mg/dL (0.6-1.3); MAGNESIUM - SERUM 2.5 mg/dL (1.8-2.4); PHOSPHOROUS 4.9 mg/dL (2.5-4.9); POTASSIUM - SERUM 3.5 mmol/L (3.5-5.1)
[2017-04-23 08:23] VITALS: BP 102/44
--- NOTE | 2017-04-23 11:02 | NUR ---
PT AOX4 RESP EVEN AND NONLABORED PT DENIES NEED AT THIS TIME IV TO RIGHT CHEST WALL INFUSAPORT PATENT AND INTACT SRX2 BED AT LOWEST SETTING CALL LIGHT WITHIN REACH WILL CONTINUE TO MONITOR FAMILY AT BEDSIDE
[2017-04-23 12:55] VITALS: BP 115/46
[2017-04-23 15:57] VITALS: BP 113/45
[2017-04-23 19:00] VITALS: BP 113/39
--- NOTE | 2017-04-23 20:38 | NUR ---
REC'D IN BED WITH EYES OPEN ALERT AND ORIENTED. RESP EVEN AND UNLABORED WITH NO DISTRESS NOTED.O2 INUSE VIA N/C. ASSESSMENT COMPLETED. C/L IN REACH ST BEDSIDE.
--- NOTE | 2017-04-24 02:00 | NUR ---
PT IN BED WITH NO DISTRESS. RESPIRATIONS EVEN AND UNLABORED. SIDE RAILS X 2. BED IS LOW. CALL LIGHT IN REACH. BED ALARM ON.
[2017-04-24 04:00] VITALS: BP 106/41
--- NOTE | 2017-04-24 04:50 | NUR ---
THIS NURSE WAS RETURNING TO NURSING STATION WHEN SHE HEARD AN BED ALARM GOING OFF. UPON FURTHER INVESTIGATION THIS NURSE FOUND PT LYING ON FLOOR AWAKE AND ALERT. PT WAS ASSESSED FOR INJURIES WITH NOTED SKIN TEAR TO RIGHT ELBOW 1X1. SHE THEN ASSESSED BACK TO BED. ENCOURAGEMENT GIVEN TO USE CALL LIGHT WHEN NEEDING TO GO TO BSC. SON AND MD WAS NOTIFIED OF FALL. WILL CONITNUE TO OBSERVE FOR NEEDS. C/L IN REACH AT BEDSIDE.
[2017-04-24 05:50] LABS: BASOPHILS 0.1 % (0-2); EOSINOPHILS 0.1 % (0-7); HEMATOCRIT 32.9 % (36.0-48.0); HEMOGLOBIN 10.7 g/dL (12-16); IMMATURE GRANULOCYTES 0.4 % (0-5); LYMPHOCYTES 3.4 % (15-50); MCH 29.2 pg (26.0-34.0); MCHC 32.5 g/dL (31.0-37.0); MCV 89.6 fL (80.0-100.0); MEAN PLATELET VOLUME 10.4 fL (7.4-10.4); MONOCYTES 2.9 % (2-11); NEUTROPHILS 93.1 % (40-80); PLATELET COUNT 177 10x3/uL (130-400); RBC 3.67 10x6/uL (4.00-5.40); RDW 15.7 % (11.5-14.5); WBC 19.7 10x3/uL (4.8-10.8)
[2017-04-24 06:15] LABS: ALBUMIN 1.8 g/dL (3.4-5.0); BILIRUBIN - TOTAL 0.56 mg/dL (0.2-1.3); CALCIUM 8.5 mg/dL (8.5-10.1); CARBON DIOXIDE 34.8 mmol/L (21.0-32.0); CREATININE - SERUM 0.9 mg/dL (0.6-1.3); MAGNESIUM - SERUM 2.3 mg/dL (1.8-2.4); PROTEIN - SERUM 5.6 g/dL (6.4-8.2)
[2017-04-24 06:17] LABS: ANION GAP 8.2 mmol/L (8-16); PHOSPHOROUS 3.5 mg/dL (2.5-4.9)
--- NOTE | 2017-04-24 07:30 | NUR ---
PT ASSESSMENT COMPLETE AWAKE AND ALERT ORINETD X 3 LUNGS WITH INSPIRATORY AND EXPIRATORY WHEEZES NOTED ON LEFT UPPER LOBE. BSA X 4 QUADS. ARANDA PATENT TO CLEAR YELLOW URINE. BED ALARM IN PLACE CALL LIGHT IN REACH
[2017-04-24 08:27] VITALS: BP 102/52
--- NOTE | 2017-04-24 09:12 | NUR ---
ALERT IN HIGH ROMEO POSITION WATCHING TV. NO SIGNS OF DISTRESS NOTED. SIDE RAILS UP X2. BED IN LOW POSITION. CALL LIGHT IN REACH.
[2017-04-24 11:39] VITALS: BP 89/50
[2017-04-24 14:17] LABS: FUNGUS MYCOLOGY CULTURE Preliminary report (())
--- NOTE | 2017-04-24 14:26 | NUR ---
PT AWAKE AND ALERT SITTING UP IN BED NO DISTRESS NOTED CALL LIGHT INREACH SIDE RAILS UP X 2
--- NOTE | 2017-04-24 15:23 | NUR ---
NUTRITION MONITORING AND EVAL. CHART REVIEWED, PT SLEEPING AT THIS TIME. TOLERATING REG DIET ~50% INTAKE RECENT MEALS. ENSURE TO BEDSIDE. RD FOLLOWING
[2017-04-24 16:13] VITALS: BP 94/40
[2017-04-24 18:00] VITALS: BP 109/64
--- NOTE | 2017-04-24 19:15 | NUR ---
RECIEVED SHIFT REPORT. PT IS LYING IN BED. ALERT AND ORIENTED AND ABLE TO VERBALIZE NEEDS. IV IS PATENT AND SALINE LOC AT THIS TIME. ARANDA IS DRAINING URINE BY GRAVITY. O2 @ 2 PER NASAL CANNULA. PT IS AMBULATORY WITH ASSISTANCE. PT DENIES ANY PAIN AT THIS TIME. NO NEEDS ARE VERBALIZED AT THIS TIME. WILL CONTINUE TO MONITOR. SIDE RAILS ARE UP X 2. BED IS IN LOWEST POSITION. BED ALARM IS ON FOR SAFETY. CALL LIGHT IS WITHIN REACH.
--- NOTE | 2017-04-24 20:55 | NUR ---
SHIFT ASSESSMENT COMPLETED. NIGHT MEDS GIVEN WITH NO PROBLEMS. NO NEEDS ARE VOICED. WILL MONITOR. SIDE RAILS X 2. BED LOW. BED ALARM ON. CALL LIGHT IN REACH.
[2017-04-25 04:00] VITALS: BP 95/51
[2017-04-25 05:46] LABS: BASOPHILS 0 % (0-2); EOSINOPHILS 0 % (0-7); HEMATOCRIT 30.8 % (36.0-48.0); IMMATURE GRANULOCYTES 0.2 % (0-5); LYMPHOCYTES 3.9 % (15-50); MCH 29.2 pg (26.0-34.0); MCHC 32.5 g/dL (31.0-37.0); MCV 89.8 fL (80.0-100.0); MONOCYTES 5.1 % (2-11); NEUTROPHILS 90.8 % (40-80); PLATELET COUNT 179 10x3/uL (130-400); RBC 3.43 10x6/uL (4.00-5.40)
[2017-04-25 05:58] LABS: WBC 14.1 10x3/uL (4.8-10.8)
[2017-04-25 06:21] LABS: ANION GAP 9.7 mmol/L (8-16); CALCIUM 8.2 mg/dL (8.5-10.1); CARBON DIOXIDE 35.4 mmol/L (21.0-32.0); CREATININE - SERUM 0.9 mg/dL (0.6-1.3); MAGNESIUM - SERUM 2.2 mg/dL (1.8-2.4); PHOSPHOROUS 3.9 mg/dL (2.5-4.9); POTASSIUM - SERUM 3.1 mmol/L (3.5-5.1)
--- NOTE | 2017-04-25 08:19 | NUR ---
AWAKE AND ALERT. ORIENTED X3. NO C/O AT THIS TIME. LUNGS HAVE FAINT CRACKLES IN UPPER LOBES. NO COUGH NOTED. SKIN IS INTACT WITHOUT REDNESS. RIGHT PORT IS PATENT WTIHOUT REDNESS AT INSERTION SITE. ARANDA PATENT WITH CLEAR YELLOW URINE. DENIES NEEDS. SITTING UP IN BED EATING BREAKFAST. AT BEDSIDE.
[2017-04-25 08:48] VITALS: BP 91/43
--- NOTE | 2017-04-25 10:00 | NUR ---
AMBULATED IN HALLWAY WITH PT USING RW. DID WELL WITH ASSIST. REFUSED TO ALLOW ARANDA OUT THIS AM "BECAUSE I'M STILL GETTING THAT LASIX".
--- NOTE | 2017-04-25 11:00 | NUR ---
Rehab Note- Acute Rehab Prescreen Order received. Visited with the patient, sitting up in chair. She is interested in coming to [facility]. Will plan on accepting the patient when medically stable for discharge from the acute hospital and after Dr. Dillard consult. Thank you for this referral! Yessi Reagan RN Clinical Liaison, [facility] Rehab/[place]
[2017-04-25 12:35] VITALS: BP 90/48
--- NOTE | 2017-04-25 14:16 | NUR ---
RESTING QUIETLY IN BED. AT BEDSDIE. DENIES NEEDS.
[2017-04-25 17:02] VITALS: BP 101/46
--- NOTE | 2017-04-25 19:25 | NUR ---
REPORTS SHE ATE A GOOD SUPPER. STAFF WROTE 50%. NO CHANGES NOTED. DENIES NEEDS.
--- NOTE | 2017-04-25 21:00 | NUR ---
AWAKE WIHT NO COMPLAINTS. RESP EVEN AND UNLAOBORED.O2 @ 3L PER NC ON. RIGHT PORT SL PATENET WITHOUT REDNESS OR EDEMA NOTED. CL IN REACH.
--- NOTE | 2017-04-25 21:33 | NUR ---
AWAKE WITH NO COMPLAINTS VOICED. RIGHT PORT INTACT WITHOUT REDNESS OR EDEMA NOTED. CL IN REACH
[2017-04-26 00:04] VITALS: BP 90/38
--- NOTE | 2017-04-26 02:00 | NUR ---
PT IN BED WITH NO DISTRESS. RESPIRATIONS EVEN AND UNLABORED. SIDE RAILS X 2. BED IS LOW. CALL LIGHT IN REACH.
--- NOTE | 2017-04-26 02:44 | NUR ---
RESTING QUIETLY. NO DISTRESS NOTED.
[2017-04-26 04:00] VITALS: BP 114/39
--- NOTE | 2017-04-26 05:58 | NUR ---
NO CHANGE IN ASSESSMENT CL IN REACH
[2017-04-26 06:46] LABS: BASOPHILS 0 % (0-2); EOSINOPHILS 0.2 % (0-7); HEMATOCRIT 30.3 % (36.0-48.0); HEMOGLOBIN 9.9 g/dL (12-16); IMMATURE GRANULOCYTES 0.2 % (0-5); LYMPHOCYTES 5.3 % (15-50); MCH 29.6 pg (26.0-34.0); MCHC 32.7 g/dL (31.0-37.0); MCV 90.7 fL (80.0-100.0); MONOCYTES 8.1 % (2-11); NEUTROPHILS 86.2 % (40-80); PLATELET COUNT 176 10x3/uL (130-400); RBC 3.34 10x6/uL (4.00-5.40); WBC 12.9 10x3/uL (4.8-10.8)
[2017-04-26 07:02] LABS: ANION GAP 8.8 mmol/L (8-16); CALCIUM 8.6 mg/dL (8.5-10.1); CARBON DIOXIDE 33.8 mmol/L (21.0-32.0); CREATININE - SERUM 0.9 mg/dL (0.6-1.3)
[2017-04-26 07:03] LABS: POTASSIUM - SERUM 3.6 mmol/L (3.5-5.1)
--- NOTE | 2017-04-26 08:17 | NUR ---
AWAKE AND ALERT. ORIENTED X3. NO C/O THIS AM. LUNGS HAVE FAINT CRACKLES THROUGHOUT LUNG ALBERTO. REPORTS OCCASSIONAL DRY COUGH. SKIN IS INTACT WITHOUT REDNESS. RIGHT PORT PATENT WITHOUT REDNESS AT INSERTION SITE. AT BEDSIDE. ARANDA PATENT WITH CLEAR YELLOW URINE. DENIES NEEDS.
[2017-04-26 08:39] VITALS: BP 88/27
--- NOTE | 2017-04-26 10:30 | NUR ---
RESTING QUIETLY IN BED. DENIES NEEDS.
[2017-04-26 13:22] VITALS: BP 98/28
[2017-04-26 17:30] VITALS: BP 95/30
--- NOTE | 2017-04-26 19:37 | NUR ---
DRESSING TO RIGHT PORT CHANGED USING STERILE TECHNIQUE. NO CHANGES NOTED. DENIES NEEDS.
[2017-04-26 20:00] VITALS: BP 104/48
--- NOTE | 2017-04-26 21:18 | NUR ---
AWAKEM,ALERT,NO COMPLAINTS VOICED. RIGHT INFUSAPORT WITHOUT REDNESS OR EDEMA NOTED. CL IN REACH
[2017-04-27] VITALS: BP 90/56
[2017-04-27 04:00] VITALS: BP 103/48
--- NOTE | 2017-04-27 04:20 | NUR ---
EYES CLOSED RESPIRATIONS WITH EASE AND UNLABORED.
[2017-04-27 05:14] LABS: BASOPHILS 0 % (0-2); EOSINOPHILS 0.1 % (0-7); HEMATOCRIT 31.9 % (36.0-48.0); HEMOGLOBIN 10.3 g/dL (12-16); IMMATURE GRANULOCYTES 0.2 % (0-5); LYMPHOCYTES 4.8 % (15-50); MCH 29.3 pg (26.0-34.0); MCHC 32.3 g/dL (31.0-37.0); MCV 90.9 fL (80.0-100.0); MEAN PLATELET VOLUME 10.9 fL (7.4-10.4); MONOCYTES 7.2 % (2-11); NEUTROPHILS 87.7 % (40-80); PLATELET COUNT 171 10x3/uL (130-400); RBC 3.51 10x6/uL (4.00-5.40); WBC 11.2 10x3/uL (4.8-10.8)
[2017-04-27 05:20] LABS: ANION GAP 9.2 mmol/L (8-16); CALCIUM 8.7 mg/dL (8.5-10.1); CARBON DIOXIDE 32.8 mmol/L (21.0-32.0); CREATININE - SERUM 0.8 mg/dL (0.6-1.3); PRE-ALBUMIN 15.2 mg/dL (18.0-35.7)
--- NOTE | 2017-04-27 07:45 | NUR ---
PT ASSESSMENT AWAKE AND ALERT ORIENTED X 3 LUNGS WITH NOTED INSPIRATORY AND EXPIRATORY WHEESES NOTED TO LEFT UPPER LOBE BSA X 4 QUADS HAS O2 PER ORDER. SEE FLOWSHEET FOR COMPLETE ASSESSMENT. ARANDA PATENT TO CLEAR YELLOW URINE
[2017-04-27 08:28] VITALS: BP 97/53
[2017-04-27 12:45] VITALS: BP 85/39
--- NOTE | 2017-04-27 13:22 | NUR ---
PT RESTING QUIETLY IN BED WITH NO DISTRESS NOTED CALL LIGHT IN REACH SIDE RAILS UP X 2
--- NOTE | 2017-04-27 14:46 | NUR ---
PATIENT RESTING IN BED AND WATCHING T.V. PATIENT IS AWAKE, ALERT, AND ORIENTED X4. NO COMPLAINTS OF PAIN AT PRESENT TIME. RIGHT CHEST INFUSAPORT PATENT WITH DRESSING C/D/I. OXYGEN ON @ 3L PER NC. PATIENT DENIES ANY NEEDS AT PRESENT TIME. CALL LIGHT IN PATIENT'S REACH. WILL MONITOR PATIENT.
[2017-04-27 15:35] LABS: BASOPHILS 0 % (0-2); EOSINOPHILS 0 % (0-7); HEMATOCRIT 32.8 % (36.0-48.0); HEMOGLOBIN 10.4 g/dL (12-16); IMMATURE GRANULOCYTES 0.2 % (0-5); LYMPHOCYTES 3.3 % (15-50); MCH 29.1 pg (26.0-34.0); MCHC 31.7 g/dL (31.0-37.0); MCV 91.6 fL (80.0-100.0); MEAN PLATELET VOLUME 10.4 fL (7.4-10.4); MONOCYTES 1.6 % (2-11); NEUTROPHILS 94.9 % (40-80); PLATELET COUNT 170 10x3/uL (130-400); RBC 3.58 10x6/uL (4.00-5.40); RDW 15.9 % (11.5-14.5); WBC 12.1 10x3/uL (4.8-10.8)
[2017-04-27 15:54] LABS: APTT 33.3 SECONDS (22.8-39.4); INR 1.09 (0.85-1.17); PROTIME 13.9 SECONDS (11.6-15.0)
--- NOTE | 2017-04-27 16:04 | NUR ---
CM REASSESSMENT NOTE: FULL TIME PARAMEDIC SPOKE WITH KIT IN PHARMACY AND SHE SPOKE WITH ADMINISTRATION REGARDING PATIENT NEEDING OPDIVO. PATIENT HAS NO SEPERATE COVERAGE FROM DRG. DR. BUSBY NURSE TOOK MESSAGE AND TOOK CM NUMBER IN CASE DR. BUSBY HAD QUESTIONS. DR. SKINNER HAS BEEN NOTIFIED.
[2017-04-27 17:06] VITALS: BP 97/61
[2017-04-27 20:00] VITALS: BP 99/52
--- NOTE | 2017-04-27 21:15 | NUR ---
PT RESTING IN BED. ALERT AND ORIENTED. NO SIGNS OF DISTRESS NOTED. SCHEDULED MEDS GIVEN. SHIFT ASSESSMENT COMPLETED. DENIES ANY NEEDS AT THIS TIME. BED LOW. CALL LIGHT IN REACH
[2017-04-28] VITALS (10 sets, daily range): BP systolic 87–117; BP diastolic 40–62
--- NOTE | 2017-04-28 04:06 | NUR ---
PT RESTING QUIETLY, EYES CLOSED. RESP EVEN, UNLABORED. NO DISTRESS NOTED. CONTINUE WRAPPER LEAF INSPECTOR'S PLAN OF CARE.
[2017-04-28 04:49] LABS: BASOPHILS 0 % (0-2); EOSINOPHILS 0 % (0-7); HEMATOCRIT 31.1 % (36.0-48.0); IMMATURE GRANULOCYTES 0.2 % (0-5); LYMPHOCYTES 4.3 % (15-50); MCH 29.5 pg (26.0-34.0); MCHC 32.2 g/dL (31.0-37.0); MCV 91.7 fL (80.0-100.0); MEAN PLATELET VOLUME 11.1 fL (7.4-10.4); MONOCYTES 4.9 % (2-11); NEUTROPHILS 90.6 % (40-80); PLATELET COUNT 186 10x3/uL (130-400); RBC 3.39 10x6/uL (4.00-5.40); WBC 10.7 10x3/uL (4.8-10.8)
[2017-04-28 05:12] LABS: ANION GAP 11.5 mmol/L (8-16); CALCIUM 8.5 mg/dL (8.5-10.1); CARBON DIOXIDE 29.4 mmol/L (21.0-32.0); CREATININE - SERUM 0.8 mg/dL (0.6-1.3); POTASSIUM - SERUM 3.9 mmol/L (3.5-5.1)
--- NOTE | 2017-04-28 13:19 | NUR ---
PT AOX4 RESP EVEN AND NONLABORED PT DENIES NEEDS AT THIS TIME IV TO RIGHT CHEST WALL PORT PATENT AND INTACT SRX2 BED IN LOWEST SETTING CALL LIGHT WITHIN REACH WILL CONTINUE TO MONITOR PT HERE FOR LUNG CANCER
--- NOTE | 2017-04-28 13:46 | NUR ---
NUTRITION MONITORING & EVAL CHART REVIEWED. PT CURRENTLY NPO FOR BRONCHOSCOPY. 25 TO 50% INTAKE RECENT MEALS PRIOR TO NPO STATUS. RD FOLLOWING
--- NOTE | 2017-04-28 14:22 | NUR ---
NATALIE HAD REQUEST TO SPEAK WITH PATIENTS SPOUSE REGARDING OPDIVO. NATALIE EXPLAINED IT WAS NOT COVERED AND THAT WE WERE WAITING ON DR. SKINNER TO MAKE A DECISION. NATALIE CALLED DR. SOLIS OFFICE AND SPOKE WITH DIPAK EXPLAINED THAT THE DRUG WAS NOT COVERED FROM PATIENTS DRG AND THAT WE NEEDED TO SEE WHAT DR. SKINNER WANTED TO DO.
--- NOTE | 2017-04-28 16:15 | NUR ---
CM REASSESSMENT NOTE: PATIENTS SPOUSE WAS NOTIFIED THAT [facility] (THE CHEMO MED )WILL BE HERE TOMORROW FOR PATIENT. [facility] WILL HAVE A CHEMO NURSE ON STAFF TOMORROW TO GIVE THE MED. KRISTI WITH REHAB WILL BE HERE THIS WEEKEND AND WILL BE WATCHING PATIENT TO SEE IF SHE IS ABLE TO ADMIT TO REHAB TOMORROW OR MONDAY. PT WILL BE WORKING WITH PATIENT THIS WEEKEND. CM WILL CONTINUE TO FOLLOW PATIENT WITH D/C NEEDS AND PLANS.
--- NOTE | 2017-04-28 16:16 | NUR ---
Rehab continues to follow this patient for the IRF. Visited with the patient and her spouse who is at the bedside. She has just returned to her room from having a [facility] and is SOB. She says she has not been able to walk with PT yet and still feels she cannot do 3 hrs of therapy, but is working hard. The CM says she is to recieve her first dose of chemotherapy tomorrow. Rehab will follow her this weekend and hopefully she will be stronger by the first of the week. She will be accepted to rehab when she feels she can participate in the required therapy. The Michelle has been made aware. Justine Patton RN Clinical Liaison, Rehab .
--- NOTE | 2017-04-28 19:10 | NUR ---
REC'D PATIENT LYING IN BED. ALERT AND ORIENTED X4. DENIED PAIN AT THIS TIME. DENIED FURTHER NEEDS AT THIS TIME. WILL CONT TO MONITOR THROUGHOUT THE NIGHT. WILL ADMIN PM MEDS PRESCRIBED. INSTRUCTED TO CALLL IF NEEDED ANYTHING BED LOW, LOCKED, CALL LIGHT IN REACH.
--- NOTE | 2017-04-28 21:30 | NUR ---
CAME UP AND TOLD ME THAT SHE WAS UPSET BC SHE DIDNT GET ANY OF HER DAYTIME MEDS. EXPLAINED TO HIM THAT SHE WAS NPO, BUT SHE IS FINE TO TAKE LITTLE SIPS NOW AND THAT I DID ADMIN HER NIGHT TIME MEDS. PATIENT WAS WANTING AN ATIVAN WITH NIGHTTIME MEDS AND I ADMINED BEFORE HE ARRIVED. HE SEEMED MUCH HAPPIER WITH THAT. AND NOW PATIENT IS SLEEPING/RESTING IN BED COMFORTABLY. WITH CONT TO MONITOR THROUGHOUT THE NIGHT.
[2017-04-29] VITALS (14 sets, daily range): BP systolic 107–140; BP diastolic 48–78
--- NOTE | 2017-04-29 00:02 | NUR ---
PERFORMED A RAPID RESPONSE ON HER. HER BREATHING IS VERY LABORED. AND LUNGS SOUNDS ARE CRACKLES AND RALES IN ALL LOBES. ER NURSE CALLED DR. REDDING, AND HE WANTS THE FLUID TO BE TURNED BACK ON. O2 STAT IS 94 WITH O2 TURNED UP TO 4L BY THE RESP THERAPIST, AN EKG WAS ALSO PERFORMED AND SHE WAS RUNNING SINUS. WILL CONT TO MONITOR THROUGHOUT THE NIGHT. CALLED HER AND GOT THE VM. LEFT A MSG FOR HIM TO CALL BACK.
--- NOTE | 2017-04-29 03:57 | NUR ---
PATIENT IS STILL HAVING SHORT SHALLOW LABORED BREATHING. TAPED O2 TO FACE DUE TO HER TAKING IT OFF. WILL CONT TO MONITOR. BED LOW, LOCKED, CALL LIGHT IN REACH.
[2017-04-29 06:46] LABS: BASOPHILS 0.1 % (0-2); EOSINOPHILS 0.2 % (0-7); HEMATOCRIT 29.7 % (36.0-48.0); HEMOGLOBIN 9.5 g/dL (12-16); IMMATURE GRANULOCYTES 0.2 % (0-5); LYMPHOCYTES 2.8 % (15-50); MCH 29.5 pg (26.0-34.0); MCV 92.2 fL (80.0-100.0); MONOCYTES 2.5 % (2-11); NEUTROPHILS 94.2 % (40-80); PLATELET COUNT 173 10x3/uL (130-400); RBC 3.22 10x6/uL (4.00-5.40); RDW 16.2 % (11.5-14.5)
[2017-04-29 07:03] LABS: ANION GAP 10.9 mmol/L (8-16); CALCIUM 8.9 mg/dL (8.5-10.1); CREATININE - SERUM 0.8 mg/dL (0.6-1.3); POTASSIUM - SERUM 3.9 mmol/L (3.5-5.1)
--- NOTE | 2017-04-29 07:45 | NUR ---
AWAKE AND ALERT AT THIS TIME. CONFUSED TO PLACE, TIME AND SITUATION. RESPIRATIONS SHALLOW, BUT EVEN. OXYGEN ON 4L VIA NC. ASSESSMENT PERFORMED PER FLOWSHEET. BED ALARM ON AND SRX2 WITH BED IN LOWEST POSITION WITH WHEELS LOCKED. CALL LIGHT IN REACH, WILL CONTINUE WITH PLAN OF CARE.
--- NOTE | 2017-04-29 09:27 | NUR ---
SCHEDULED MEDICATIONS ADMINISTERED AT THIS TIME WELL PRN ATIVAN FOR ANXIETY AND DIFFICULTY BREATHING. ARANDA REMAINS PATENT AND DRAINING TO GRAVITY. AT BEDSIDE. PT PLACED ON BEDPAN. CALL LIGHT IN REACH AND BED ALARM ON. WILL CONTINUE WITH PLAN OF CARE.
--- NOTE | 2017-04-29 10:47 | NUR ---
PRN MORPHINE 0.5MG ADMINISTERED AT THIS TIME FOR RESPIRATORY DISTRESS. WISHES TO CONTINUE WITH CHEMOTHERAPY. CALL LIGHT IN REACH, FAMILY AT BEDSIDE. DISCUSSING CODE STATUS AT THIS TIME. DR REDDING AND DIALLO AWARE OF PT'S RESPIRATORY ASSESSMENT AT THIS TIME. REMAINS ON 4L OF OXYGEN WITH RESPIRATIONS LABORED AND SHALLOW. WILL CONTINUE WITH PLAN OF CARE.
--- NOTE | 2017-04-29 12:00 | NUR ---
DR CODY'S PAGED AT THIS TIME REGARDING PT'S LAB WORK PER PHARMACY. THEY EXPLAINED THAT A SPECIAL MESSAGE WAS LEFT TO CALL THE PHYSICIAN WITH LAB VALUES PRIOR TO THEIR RELEASE OF MEDICATION.
--- NOTE | 2017-04-29 12:10 | NUR ---
SPOKE WITH PT'S SPOUSE AT THIS TIME REGARDING CODE STATUS. HE STATED THAT PT'S WISHES WERE TO BE A DNR. PAGED DR LANDRUM AND LET HIM KNOW OF THE CONCLUSION AND HE WILL PUT IN THE DNR ORDER ONCE HE IS AT HOME. WILL CONTINUE WITH PLAN OF CARE. AWAITING DR CODY'S RETURN PHONE CALL.
--- NOTE | 2017-04-29 12:30 | NUR ---
OXYGEN LEVEL 89% ON 5L VIA NC. NOTIFIED RESPIRATORY SO THAT PT CAN BE PLACED ON OXYMIZER. EXPLAINED TO THE PLAN OF ACTION AND ALSO EXPLAINED THAT CHEMO PRE MEDICAITONS WOULD BE GIVEN AT 1 O'CLOCK AND CHEMO TO START AT 2PM. PT REMAINS AIR HUNGRY. WILL ALLOW TIME FOR OXYMIZER TO TAKE AFFECT AND RECORD NEW OXYGEN LEVEL. REMAINS AT BEDSIDE AND ASSURED HIM AND PT THAT WE WOULD DO EVERYTHING POSSIBLE TO ENSURE THAT SHE WAS COMFORTABLE.
--- NOTE | 2017-04-29 12:39 | NUR ---
OXYGEN SATURATIONS 96% ON 6L VIA OXYMIZER. DR REDDING PAGED TO UPDATE ON STATUS. REMAINS AT BEDSIDE.
--- NOTE | 2017-04-29 14:35 | NUR ---
IV INFUSION OF OPDIVO 200MG IN 100ML STARTED AT 60 ML/HR AT THIS TIME AND WITNESSED BY KRISTINE GUILLEN. RIGHT CHEST PORT DOES NOT HAVE BLOOD RETURN WHICH PT'S STATES THAT IS NORMAL FOR THE PATIENT. NO S/S OF INFILATRATION TO RIGHT CHEST PORT. VITAL SIGNS STABLE. WILL CONTINUE TO MONITOR PT DURING DURATION OF TREATMENT.
--- NOTE | 2017-04-29 14:50 | NUR ---
TOLERATING CHEMO WITHOUT S/S OF REACTION. RATE INCREASED TO GOAL RATE OF 120ML/HR. REMAINS AT BEDSIDE. PT SLEEPING AT THIS TIME WITH OXYGEN SATURATION 99% ON 6L OXYMIZER.
--- NOTE | 2017-04-29 15:45 | NUR ---
OPDIVO INFUSION COMPLETE AT THIS TIME. NO S/S OF REACTION AND VITAL SIGNS STABLE. REMAINS AT BEDSIDE AND DR REDDING IN ROOM ASSESSING PT. OXYGEN SATURATION 99% ON 6L VIA OXYMIZER.
--- NOTE | 2017-04-29 17:15 | NUR ---
AWAKE AND ALERT WITH SPOUSE AND 2 FRIENDS AT BEDSIDE. RESPIRATIONS SHALLOW WITH STRIDOR PRESENT. OXYGEN SATURATION 99% ON 6L VIA OXYMIZER. CALL LIGHT IN REACH, DENIES NEEDS AT THIS TIME. WILL CONTINUE WITH PLAN OF CARE.
[2017-04-30] VITALS: BP 95/60
[2017-04-30 04:00] VITALS: BP 102/56
[2017-04-30 05:55] LABS: BASOPHILS 0 % (0-2); EOSINOPHILS 0 % (0-7); HEMOGLOBIN 9.3 g/dL (12-16); IMMATURE GRANULOCYTES 0.4 % (0-5); LYMPHOCYTES 1.9 % (15-50); MCH 29.5 pg (26.0-34.0); MCHC 32.1 g/dL (31.0-37.0); MCV 92.1 fL (80.0-100.0); MEAN PLATELET VOLUME 10.8 fL (7.4-10.4); MONOCYTES 1.6 % (2-11); NEUTROPHILS 96.1 % (40-80); PLATELET COUNT 174 10x3/uL (130-400); RBC 3.15 10x6/uL (4.00-5.40); RDW 16.2 % (11.5-14.5); WBC 10.6 10x3/uL (4.8-10.8)
[2017-04-30 06:17] LABS: ANION GAP 13.1 mmol/L (8-16); CALCIUM 8.9 mg/dL (8.5-10.1); CARBON DIOXIDE 26.6 mmol/L (21.0-32.0); CREATININE - SERUM 0.8 mg/dL (0.6-1.3); POTASSIUM - SERUM 3.7 mmol/L (3.5-5.1)
--- NOTE | 2017-04-30 07:15 | NUR ---
BI PAP PLACED ON PT BY RESPIRATORY AT THIS TIME. AT BEDSIDE. CALL LIGHT IN REACH, WILL CONTINUE WITH PLAN OF CARE.
[2017-04-30 08:31] VITALS: BP 110/56
--- NOTE | 2017-04-30 10:57 | NUR ---
SCHEDULED MEDICATIONS ADMINISTERED AT THIS TIME. OXYGEN ON 6L OXYMIZER. REMAINS AT BEDSIDE AND PT AWAKE AND ALERT. CALL LIGHT IN REACH, WILL CONTINUE WITH PLAN OF CARE.
[2017-04-30 12:14] VITALS: BP 96/52
--- NOTE | 2017-04-30 14:13 | NUR ---
SCHEDULED SOLU MEDROL ADMINISTERED AT THIS TIME. DENIES NEEDS. REMAINS ON 6L OXYMIZER WITH AT BEDSIDE. WILL CONTINUE WITH PLAN OF CARE.
[2017-04-30 15:08] LABS: ACID FAST SMEAR Negative (()); AFB SPECIMEN PROCESSING Concentration (())
[2017-04-30 16:28] VITALS: BP 117/67
--- NOTE | 2017-04-30 17:07 | NUR ---
PRN ATIVAN ADMINISTERED PER PT'S REQUEST FOR ANXIETY. PLACED BACK ON BI-PAP AT THIS TIME FOR AIR HUNGER. REMAINS AT BEDSIDE, WILL CONTINUE WITH PLAN OF CARE.
--- NOTE | 2017-04-30 17:25 | NUR ---
NOTIFIED DR LANDRUM OF PT'S URINE OUTPUT ONLY BEING 125ML AND DARK AND CONCENTRATED. NO NEW ORDERS GIVEN.
--- NOTE | 2017-04-30 19:40 | NUR ---
RECIEVED SHIFT REPORT. PT IS LYING IN BED. ALERT AND ORIENTED AND ABLE TO VERBALIZE NEEDS. IV IS PATENT AND FLUIDS ARE RUNNING PER ORDER. O2 @ 6 PER OXIMIZER. ARANDA IS DRAINING URINE BY GRAVITY. PT REQUIRES ASSISTANCE TURNING IN BED FOR COMFORT AND SKIN CARE. PT DENIES ANY PAIN AT THIS TIME. NO NEEDS ARE VERBALIZED AT THIS TIME. WILL CONTINUE TO MONITOR. SIDE RAILS ARE UP X 2. BED IS IN LOWEST POSITION. BED ALARM IS ON FOR SAFETY. CALL LIGHT IS WITHIN REACH.
[2017-04-30 20:00] VITALS: BP 104/66
--- NOTE | 2017-04-30 21:32 | NUR ---
SHIFT ASSESSMENT COMPLETED. NIGHT MEDS GIVEN WITH NO PROBLEMS. PT REQUESTING PRN ATIVAN FOR ANXIETY. ADMINISTERED PER ORDER. DENIES FURTHER NEEDS. WILL MONITOR. SIDE RAILS X 2. BED LOW. BED ALARM ON. CALL LIGHT IN REACH.
[2017-05-01] VITALS: BP 124/67
[2017-05-01 04:00] VITALS: BP 98/46
[2017-05-01 05:04] LABS: BASOPHILS 0 % (0-2); EOSINOPHILS 0 % (0-7); HEMOGLOBIN 9.5 g/dL (12-16); IMMATURE GRANULOCYTES 0.3 % (0-5); LYMPHOCYTES 1.6 % (15-50); MCH 29.3 pg (26.0-34.0); MCHC 31.7 g/dL (31.0-37.0); MCV 92.6 fL (80.0-100.0); MEAN PLATELET VOLUME 10.4 fL (7.4-10.4); MONOCYTES 1.9 % (2-11); NEUTROPHILS 96.2 % (40-80); PLATELET COUNT 168 10x3/uL (130-400); RBC 3.24 10x6/uL (4.00-5.40); RDW 16.1 % (11.5-14.5); WBC 11.2 10x3/uL (4.8-10.8)
[2017-05-01 05:29] LABS: ANION GAP 9.9 mmol/L (8-16); CALCIUM 9.2 mg/dL (8.5-10.1); CARBON DIOXIDE 29.2 mmol/L (21.0-32.0); CREATININE - SERUM 0.8 mg/dL (0.6-1.3); MAGNESIUM - SERUM 2.1 mg/dL (1.8-2.4); PHOSPHOROUS 3.3 mg/dL (2.5-4.9); POTASSIUM - SERUM 4.1 mmol/L (3.5-5.1)
--- NOTE | 2017-05-01 07:50 | NUR ---
ASSESSMENT COMPLETE. R PORT PATENT. D5NS INFUSING AT 40 CC/HR VIA PUMP. O2 8L PER OXIMIZER IN USE. ARANDA PATENT DRAINING YELLOW URINE. SOB ON EXERTION. BED ALARM IN USE. AT BEDSIDE.
[2017-05-01 08:19] VITALS: BP 104/57
--- NOTE | 2017-05-01 12:00 | NUR ---
RESTING QUIETLY IN BED. AT BEDSIDE.
[2017-05-01 12:03] VITALS: BP 120/52
[2017-05-01 14:20] LABS: APTT 31.4 SECONDS (22.8-39.4); INR 1.26 (0.85-1.17); PROTIME 15.7 SECONDS (11.6-15.0)
--- NOTE | 2017-05-01 15:32 | NUR ---
OFF FLOOR TO CT VIA BED.
[2017-05-01 15:53] VITALS: BP 108/58; BP 136/86
--- NOTE | 2017-05-01 16:00 | NUR ---
UNABLE TO PERFORM THORACENTESIS. AT BEDSIDE. RESTING QUIETLY IN BED.
--- NOTE | 2017-05-01 19:30 | NUR ---
RECIEVED SHIFT REPORT. PT IS LYING IN BED. ALERT AND ORIENTED AND ABLE TO VERBALIZE NEEDS. IV IS PATENT AND SALINE LOC AT THIS TIME. O2 @ 7 PER OXIMIZER. ARANAD IS DRAINING URINE BY GRAVITY. PT DENIES ANY PAIN AT THIS TIME. NO NEEDS ARE VERBALIZED AT THIS TIME. VISITOR IS AT THE BEDSIDE. WILL CONTINUE TO MONITOR. SIDE RAILS ARE UP X 2. BED IS IN LOWEST POSITION. BED ALARM IS ON FOR SAFETY. CALL LIGHT IS WITHIN REACH.
[2017-05-01 20:03] VITALS: BP 139/55
--- NOTE | 2017-05-01 20:50 | NUR ---
SHIFT ASSESSMENT COMPLETED. NIGHT MEDS GIVEN WITH NO PROBLEMS. PT REQUESTING PRN ATIVAN. ADMINISTERED PER ORDER. DENIES FURTHER NEEDS. VISITOR AT THE BEDSIDE. WILL MONITOR. SIDE RAILS X 2. BED LOW. BED ALARM ON. CALL LIGHT IN REACH.
[2017-05-02] VITALS: BP 129/61
[2017-05-02 04:00] VITALS: BP 126/63
[2017-05-02 04:38] LABS: BASOPHILS 0 % (0-2); EOSINOPHILS 0 % (0-7); HEMATOCRIT 27.5 % (36.0-48.0); HEMOGLOBIN 8.7 g/dL (12-16); IMMATURE GRANULOCYTES 0.1 % (0-5); LYMPHOCYTES 1.7 % (15-50); MCH 29.2 pg (26.0-34.0); MCHC 31.6 g/dL (31.0-37.0); MCV 92.3 fL (80.0-100.0); MEAN PLATELET VOLUME 10.6 fL (7.4-10.4); MONOCYTES 2.4 % (2-11); NEUTROPHILS 95.8 % (40-80); PLATELET COUNT 166 10x3/uL (130-400); RBC 2.98 10x6/uL (4.00-5.40); RDW 16.5 % (11.5-14.5); WBC 8.9 10x3/uL (4.8-10.8)
[2017-05-02 04:46] LABS: ANION GAP 13.5 mmol/L (8-16); CALCIUM 8.7 mg/dL (8.5-10.1); CARBON DIOXIDE 27.2 mmol/L (21.0-32.0); CREATININE - SERUM 0.8 mg/dL (0.6-1.3); POTASSIUM - SERUM 3.7 mmol/L (3.5-5.1)
[2017-05-02 08:25] VITALS: BP 118/56
--- NOTE | 2017-05-02 08:30 | NUR ---
ASSESSMENT COMPLETE. R PORT PATENT. O2 5L PER OXIMIZER. ARANDA PATENT DRAINING YELLOW URINE. GENERALIZED WEAKNESS. FAMILY AT BEDSIDE.
--- NOTE | 2017-05-02 09:40 | NUR ---
PRBC INFUSION STARTED AT 100 CC/HR VIA PUMP. VSS. DENIES ANY NEEDS AT PRESENT.
--- NOTE | 2017-05-02 12:00 | NUR ---
PRBC INFUSION COMPLETE. RESTING QUIETLY WITH BIPAP IN USE.
--- NOTE | 2017-05-02 14:34 | NUR ---
CM REASSESSMENT NOTE: CM SPOKE WITH PATIENT AND SPOUSE REGARDING ANYTHING THEY MIGHT NEED. SPOUSE STATED HE WAS HAPPY NOW THAT THE CHEMO MED WAS GIVEN SO THEY COULD FIGHT THAT NASTY CANCER. PATIENT WAS SHAKING HER HEAD YES. CM WILL CONTINUE TO FOLLOW PATIENT WITH D/C NEEDS AND PLANS.
--- NOTE | 2017-05-02 15:00 | NUR ---
NO CHANGES NOTED AT PRESENT.
[2017-05-02 16:30] VITALS: BP 147/70
--- NOTE | 2017-05-02 18:45 | NUR ---
RESTING QUIETLY AT THIS TIME.
[2017-05-02 19:00] VITALS: BP 137/70
--- NOTE | 2017-05-02 19:35 | NUR ---
RECIEVED SHIFT REPORT. PT IS LYING IN BED. ALERT AND ORIENTED AND ABLE TO VERBALIZE NEEDS. IV IS PATENT AND SALINE LOC. O2 @ 5 PER OXIMIZER. ARANDA IS DRAINING URINE BY GRAVITY. PT HAS BEEN UP WITH PHYSICAL THERAPY. PT DENIES ANY PAIN AT THIS TIME. NO NEEDS ARE VERBALIZED AT THIS TIME. WILL CONTINUE TO MONITOR. SIDE RAILS ARE UP X 2. BED IS IN LOWEST POSITION. BED ALARM IS ON FOR SAFETY. CALL LIGHT IS WITHIN REACH.
--- NOTE | 2017-05-02 21:19 | NUR ---
SHIFT ASSESSMENT COMPLETED. NIGHT MEDS GIVEN WITH NO PROBLEMS. PT REQUESTING PRN ATIVAN. ADMINISTERED PER ORDER. DENIES FURTHER NEEDS. VISITOR AT BEDSIDE. SIDE RAILS X 2. BED LOW. BED ALARM ON. CALL LIGHT IN REACH.
[2017-05-03] VITALS: BP 101/65
[2017-05-03 04:00] VITALS: BP 112/62
[2017-05-03 05:17] LABS: BASOPHILS 0 % (0-2); EOSINOPHILS 0 % (0-7); IMMATURE GRANULOCYTES 0.2 % (0-5); LYMPHOCYTES 2.7 % (15-50); MCH 29.2 pg (26.0-34.0); MCHC 32.2 g/dL (31.0-37.0); MCV 90.6 fL (80.0-100.0); MEAN PLATELET VOLUME 10.7 fL (7.4-10.4); NEUTROPHILS 94.1 % (40-80); PLATELET COUNT 156 10x3/uL (130-400); RDW 16.3 % (11.5-14.5); WBC 8.6 10x3/uL (4.8-10.8)
[2017-05-03 05:24] LABS: HEMATOCRIT 33.8 % (36.0-48.0); HEMOGLOBIN 10.9 g/dL (12-16); RBC 3.73 10x6/uL (4.00-5.40)
[2017-05-03 05:27] LABS: CALC OSMOLALITY 290 mosm/kg (275-300); CARBON DIOXIDE 29.5 mmol/L (21.0-32.0); CHLORIDE - SERUM 105 mmol/L (98-107); CREATININE - SERUM 0.7 mg/dL (0.6-1.3); GLUCOSE 139 mg/dL (74-106); POTASSIUM - SERUM 3.6 mmol/L (3.5-5.1); SODIUM 142 mmol/L (136-145); eGFR NON AFRICAN AMERICAN 86 mL/min (90-120)
[2017-05-03 05:30] LABS: UREA NITROGEN 28 mg/dL (7-18)
--- NOTE | 2017-05-03 07:30 | NUR ---
RECIEVED PT DURING WALKING ROUNDS, PT HAVING DIFFICULTY BREATHING AT THIS TIME, REQUEST TO HAVE BIPAP ON. ASKED RESPIRATORY TO PLACE PT BACK ON BIPAP. ASSESSMENT DONE PER FLOWSHEET. BED IN LOW POSITION AND CALL LIGHT WITHIN REACH. WILL CONTINUE TO MONITOR.
[2017-05-03 07:57] VITALS: BP 132/80
--- NOTE | 2017-05-03 10:15 | NUR ---
CENTRAL LINE DRESSING CHANGED AT THIS TIME USING STERILE TECHNIQUE. PT TOLERATED WELL. HAD DIFFICULTY GETTING PT TO WAKE UP FOR MEDS BUT WAS ABLE TO AROUSE TO ADMINISTER MEDS. BED IN LOW POSITION AND CALL LIGHT WITHIN REACH, WILL CONTINUE TO MONITOR.
--- NOTE | 2017-05-03 10:42 | NUR ---
Rehab continues to follow this patient. She remains on 5 liters of 02 with a sat of 89% and has a HR of 141 per nurses notes. She remains a good rehab candidate, but needs to be able to actively participate in 3 hrs of therapy a day 5 days a week. Rehab will continue to follow her. She and her spouse are aware and are in agreement. Notified the NATALIE Judd. Justine Patton RN CL
[2017-05-03 11:35] VITALS: BP 133/83
[2017-05-03 11:51] VITALS: BP 133/83
[2017-05-03 12:18] LABS: FUNGUS STAIN Final report (())
--- NOTE | 2017-05-03 13:10 | NUR ---
CALLED DR. PALACIO'S AT THIS TIME ABOUT PT ELEVATED HEART RATE. RECIEVED ORDERS FOR EKG, ABGS AND TO CONSULT CARDIOLOGY. WILL CONTINUE TO MONITOR.
--- NOTE | 2017-05-03 13:57 | NUR ---
CALLED EKG RESULTS TO DR. CHAMORRO AT THIS TIME.
--- NOTE | 2017-05-03 14:31 | NUR ---
WAS CALLED OVER FROM [facility] TO PUSH DIGOXIN. PUSHED SLOWLY OVER 5 MINS VIA R.CHEST INFUSA PORT. APICAL PULSE VERY HARD TO CAPTURE R/T IRREGULARITY PLACED TELEMETRY ON PATIENT AND SHE IS CURRENTLY RUNNING [address] [facility].AFIB. CL IN REACH, FAMILY AT BEDSIDE. WILL CTM.
--- NOTE | 2017-05-03 16:21 | NUR ---
CM MET WITH PATIENT REGARDING IP HOSPICE WITH [facility] NURSE. PATIENT WANTED TO TALK WITH DR. BUSBY AND CM CALLED FOR PATIENTS [facility] AND DR. BUSBY SPOKE WITH HIM AND THEY ARE STAYING IN [facility] AND ARE WANTING TO D/C HOME WITH HOSPICE TOMORROW. CM WILL CONTINUE TO FOLLOW PATIENT WITH D/C NEEDS AND PLANS.
[2017-05-03 19:00] VITALS: BP 132/73
--- NOTE | 2017-05-03 20:00 | NUR ---
PT LYING IN BED TALKING WITH FAMILY, ASSESSMENT COMPLETED, NO ACUTE DISTRESS NOTED, DENIES PAIN OR NEEDS, HR HAS BEEN RUNNING IN 130 TO 160, AWARE, ARANDA DRAINING TO GRAVITY, SR'S UP, CL IN REACH, WILL MONITOR
--- NOTE | 2017-05-03 21:02 | NUR ---
PRN RESTORIL GIVEN PER REQUEST FOR SLEEP ALONG WITH ROUTINE MEDS, DIANA WELL, FAMILY IN ROOM, DENIES NEEDS, CL IN REACH
--- NOTE | 2017-05-03 23:20 | NUR ---
RESTING WITH EYES CLOSED, BIPAP IN PLACE, HR CONTINUES TO BE ELEVATED, NO ACUTE DISTRESS NOTED, PT DENIES PAIN OR DISCOMFORT, FALL PRECAUTIONS IN PLACE, SPOUSE AT BEDSIDE, CL IN REACH
--- NOTE | 2017-05-04 01:35 | NUR ---
CONTINUES TO REST WITH EYES CLOSED, NOW ON OXIMIZER @ 5L, NO DISTRESS NOTED, EASILY AROUSED, SPOUSE AT BEDSIDE, SR'S UP, CL IN REACH
[2017-05-04 04:00] VITALS: BP 136/76
[2017-05-04 05:09] LABS: BASOPHILS 0 % (0-2); EOSINOPHILS 0.1 % (0-7); HEMATOCRIT 37.5 % (36.0-48.0); HEMOGLOBIN 12.1 g/dL (12-16); IMMATURE GRANULOCYTES 0.2 % (0-5); LYMPHOCYTES 3.8 % (15-50); MCH 29.4 pg (26.0-34.0); MCHC 32.3 g/dL (31.0-37.0); MEAN PLATELET VOLUME 10.8 fL (7.4-10.4); MONOCYTES 3.6 % (2-11); NEUTROPHILS 92.3 % (40-80); PLATELET COUNT 151 10x3/uL (130-400); RBC 4.12 10x6/uL (4.00-5.40); RDW 16.2 % (11.5-14.5); WBC 8.4 10x3/uL (4.8-10.8)
[2017-05-04 05:25] LABS: CALC OSMOLALITY 288 mosm/kg (275-300); CALCIUM 9.3 mg/dL (8.5-10.1); CHLORIDE - SERUM 105 mmol/L (98-107); CREATININE - SERUM 0.7 mg/dL (0.6-1.3); GLUCOSE 106 mg/dL (74-106); POTASSIUM - SERUM 3.6 mmol/L (3.5-5.1); SODIUM 142 mmol/L (136-145); UREA NITROGEN 28 mg/dL (7-18); eGFR NON AFRICAN AMERICAN 86 mL/min (90-120)
--- NOTE | 2017-05-04 07:30 | NUR ---
RECIEVED PT DURING WALKING ROUNDS, PT RESTING IN BED WITH VISABLE SIGNS OF DISTRESS NOTED. PT HAVING DIFFICULTY BREATHING, CALLED IN RESPIRATORY AT THIS TIME. ASSESSMENT DONE PER FLOWSHEET. BED IN LOW POSITION AND CALL LIGHT WITHIN REACH, WILL CONTINUE TO MONITOR.
[2017-05-04 08:04] VITALS: BP 132/75
--- NOTE | 2017-05-04 08:11 | NUR ---
CAME OVER TO PUSH IV DIGOXIN ORDERED FOR PT. PTS APICAL PULSE VERY HARD TO DETERMINE R/T HOW FAST ITS BEATING AND IRREGULAR ALSO PT HAS CRACKLES THROUGHOUT HER UPPER LOBES AND ITS VERY HARD TO HEAR. PUSH GIVEN SLOWLY OVER 5 MINS VIA R.CHEST IP WITHOUT ANY DIFFICULTIES, PT IS BEING MONITERED CLOSELY VIA TELEMETRY MONITER AND MONITER TECH AWARE OF DRUG BEING PUSHED. WILL CTM.
--- NOTE | 2017-05-04 08:15 | NUR ---
PT HEART RATE ON MONITOR 170 UNCONTROLLED A-FIB, DANISH MONGE RN ON THE FLOOR AT THIS TIME ADMINISTERING LANOXIN IV PER PROTOCOL. WILL CONTINUE TO MONITOR.
--- NOTE | 2017-05-04 09:51 | NUR ---
This patient's family have decided to discharge home with hospice. Rehab will no longer follow. Thank you for the referral. Justine Patton RN CL
--- NOTE | 2017-05-04 10:32 | NUR ---
CM REASSESSMENT NOTE: PATIENT HAS CHANGED TO [facility] AND WILL BE GOING HOME. PATIENT HAS A FRIEND THAT WORKS WITH [facility] AND SHE WILL BE TAKING CARE OF HER. [facility] HAS BEEN CONSULTED THIS AM AND IS ROOM AT THIS TIME.
--- NOTE | 2017-05-04 17:00 | NUR ---
PT TAKEN BY AMBULANCE AT THIS TIME, DISCHARED TO HOSPICE.
--- NOTE | 2017-05-05 12:53 | CN ---
PATIENT NAME:DIANA LEYVA MEDICAL RECORD: [id number] : 38 LOCATION:D[facility] ADMIT DATE: 04/12/17 ACCOUNT: [id number] CONSULTING PHYSICIAN: KAYE CHAMORRO MD REFERRING PHYSICIAN: LAILA BUSBY MD DATE OF CONSULTATION: 05/03/2017 HISTORY OF PRESENT ILLNESS: A 77-year-old lady with history of lung carcinoma stage III, admitted with post-obstructive pneumonia, was noticed to be more dyspneic, lethargic, noted to have tachycardia. A 12-lead is currently pending on exam. This could be atrial flutter, AFib versus sinus tach with PACs. Had previous echocardiographic study that showed normal LV function, pulse rate baseline in the 110s. We are asked to see her concerning her cardiovascular status. PAST MEDICAL HISTORY: Includes: 1. History of COPD. 2. Coronary artery disease, status post stenting. 3. Peripheral vascular disease status post subclavian intervention. 4. Hyperlipidemia. 5. Obstructive pulmonary disease. ALLERGIES: KEFLEX. SOCIAL HISTORY: A retired nurse. Smokes about a pack a day. , does have good family support. No set exercise program. MEDICATIONS PRIOR TO ADMISSION: Included Levaquin 750 daily, Flexeril 10 at bedtime, atorvastatin 40 daily, Ativan 0.5 q. 6 p.r.n., Restoril 15 as needed and Protonix 40 daily. REVIEW OF SYSTEMS: Unobtainable currently due to patient factors. PHYSICAL EXAMINATION: GENERAL: Somewhat lethargic female, in no acute distress, on Ventimask. VITAL SIGNS: Blood pressure 133/83, pulse 140 and irregular. HEENT: Normocephalic and atraumatic. NECK: No bruits noted. HEART: Regular, questionable S3 gallop. LUNGS: Poor air excursion with marked upper airway noise. ABDOMEN: Soft, nontender. EXTREMITIES: Pulses are actually palpable, 2+. There is no edema. DIAGNOSTIC DATA: EKG is pending. IMPRESSION: Supraventricular tachycardia. We will check an echocardiographic study, 2D study only. Place on telemetry. Further recommendations based on clinical course. TRANSINT:[id number] Voice Confirmation ID: [id number] DOCUMENT ID: [id number] CONSULT REPORT [id number] MONICASalbadorDIANA GREGORY A MD at 1253 CC: [id number] DICTATION DATE: 05/03/17 1340 SOCIAL WORK INSTRUCTOR: 05/04/17 0228 DIS IN 05/04/[address] [facility] [address] [place] [address]
--- NOTE | 2017-05-08 10:11 | EC ---
PATIENT:DIANA LEYVA DATE OF SERVICE: 04/12/17 SEX: F MEDICAL RECORD: [id number] DATE OF : 38 LOCATION:D.[facility] AGE OF PATIENT: 77 ADMISSION DATE: 04/12/17 REFERRING PHYSICIAN: INTERPRETING PHYSICIAN: JACKLYN FERNANDEZ MD ECHOCARDIOGRAM REPORT ECHO CHARGES 5 ECHO LIMITED CLINICAL DIAGNOSIS: R/O EFFUSION ECHOCARDIOGRAPHIC MEASUREMENTS (adult normal given) AC root (d.<3.7cm) 0 LV Septum d (<1.2 cm> 0 Valve Excursion 0 LV Septum (systole) 0 Left Atria (s.<4.0cm> 0 LVPW d(<1.2cm) 0 RV (d.<2.3cm) 0 LVPW (sytole) 0 LV diastole(<5.6CM) 0 MV E-F(>70mm/sec) 0 LV systole 0 LVOT Diameter 0 MV exc.(>10mm) 0 Est.ejection fraction (50-75%) 0 Pericardial Effusion Y DOPPLER: LVIT 0 A 0 E 0 LA 0 RVSP 0 LVOT 0 AOP1/2T 0 Asc. Ao 0 RVOT 0 RA 0 PA 0 AV Gradient Peak 0 AV Mean 0 AV Area 0 MV Gradient Peak 00 MV Mean 0 MV Area 0 COMMENTS: LIMITED STUDY (2-D ONLY) Bond Writer: Franky PICKERNIG Accident Report Clerk:Mayur Garner TAPE# PACS DATE OF SERVICE: 05/04/2017 Trace pericardial effusion is present. This is not hemodynamically significant. No evidence of tamponade. Pleural effusion is present as well. TRANSINT:[id number] Voice Confirmation ID: [id number] DOCUMENT ID: [id number] ECHOCARDIOGRAM REPORT [id number] DIANA LEYVA JACKLYN BALDERAS MD at 1011 CC: [id number] DICTATION DATE: 05/04/17 0907 HOTEL OR MOTEL CLEANING SUPERVISOR: 05/04/17 1706 DIS IN 05/04/17 [facility] [address] [place] [address]
== END 2017-05-04 17:29 | disposition home health service (06) | DRG 190 ==
LOC: D.ER 13:44 → D.MS 18:33
PROVIDERS: Emergency Medicine; Family Medicine; General Practice; Internal Medicine Pulmonary Disease; Specialist; ADMIT Family Medicine
PROC: 0W9B3ZZ Drainage of Left Pleural Cavity, Percutaneous Approach (ICD-10-PCS; principal; 2017-04-13)
PROC: 0BB78ZX Excision of Left Main Bronchus, Via Natural or Artificial Opening Endoscopic, Diagnostic (ICD-10-PCS; 2017-04-28)
DX: J44.0 Chronic obstructive pulmonary disease with (acute) lower respiratory infection (principal); J18.9 Pneumonia, unspecified organism; C34.92 Malignant neoplasm of unspecified part of left bronchus or lung; C77.9 Secondary and unspecified malignant neoplasm of lymph node, unspecified; J98.11 Atelectasis; J90 Pleural effusion, not elsewhere classified; E46 Unspecified protein-calorie malnutrition; I47.1 Supraventricular tachycardia; J44.1 Chronic obstructive pulmonary disease with (acute) exacerbation; I10 Essential (primary) hypertension; E78.5 Hyperlipidemia, unspecified; R09.02 Hypoxemia; I73.9 Peripheral vascular disease, unspecified; F41.9 Anxiety disorder, unspecified; F32.9 Major depressive disorder, single episode, unspecified; Z68.24 Body mass index [BMI] 24.0-24.9, adult; F17.200 Nicotine dependence, unspecified, uncomplicated